=== PATIENT | male | born 1970 | race Caucasian/White ===

== ENCOUNTER 2016-06-29 14:21 | Inpatient (IN) | payer BC, MEDICARE ==
--- NOTE | ~2016-06-29 | CN ---
Consultation Report [facility] [address] [place]. [address] NAME: NOLVIA PRICE : 68 STATUS : ADM IN PAT#: [id number] AGE: 45 ADM/REG DATE : 06/29/16 MR#: [id number] REPORT SERV DATE: 07/01/16 DICTATED BY: LULU QUINONES DATE: 06/30/16 REPORT STATUS : Draft TRANSCRIBED BY: MODL DATE: 06/30/16 CONSULTATION REPORT DATE OF CONSULTATION: 06/30/2016 REASON FOR CONSULTATION: Consulted for diabetes management. REQUESTING PHYSICIAN: Dr. Martinez. IDENTIFYING DATA: 1. PCP is Gregory Nunez III. 2. Shopper is Kali Shaver. 3. Combination Man in the past is Angel Lamar. 4. Applications Support Lead outpatient, the patient sees Dr. Bridges, seen by [facility]. 5. Compensation Expert, Rey Morales. 6. Front End Web Developer, Jeannie Block. HISTORY OF PRESENT ILLNESS: This is a pleasant 45-year-old male with a longstanding history of type 1 diabetes and end-stage renal disease, who dialyzes at the [facility] at [facility], dialysis days Wednesday, Wednesday, and Wednesday through a left forearm AV fistula. He is being admitted by Dr. Rey Morales for abdominal pain, nausea, vomiting, and chills. On 06/29/2016, where CT of the abdomen showed no active process, chest x-ray was unremarkable with no acute changes. The patient is presently receiving antibiotics pulse dosed by pharmacy with an ID consult relating to a right foot ulcer for which he was MRSA positive and blood cultures and on vancomycin. We have been consulted to help manage his blood sugars. Today, his blood sugars using his insulin pump range from 87-111 for which he did dip down in the 60s and 70s briefly today too. Presently, his blood sugar is 111 and he has his insulin pump in use. The patient's history was obtained through careful interview with the patient, coupled with review of [employer] and [employer], category consultant notes and old medical records. PAST MEDICAL HISTORY: 1. Type 1 diabetes on insulin pump. 2. End-stage renal disease on dialysis where he attends the [facility] and [facility] Wednesday, Wednesday, and Wednesday. 3. Recurrent nausea and vomiting. 4. Gastroparesis. 5. Hypertension. 6. Previous DVT. 7. Obstructive sleep apnea on home CPAP. 8. Right Charcot ankle. 9. Gastroparesis. Consultation Report [facility] [id number] [place]. [address] NAME: NOLVIA PRICE : 68 STATUS : ADM IN PAT#: [id number] AGE: 45 ADM/REG DATE : 06/29/16 MR#: [id number] REPORT SERV DATE: 07/01/16 DICTATED BY: LULU QUINONES DATE: 06/30/16 REPORT STATUS : Draft TRANSCRIBED BY: SAUL DATE: 06/30/16 10.Hyperlipidemia. 11.CVA in 2011 for which he can lose balance at time. 12.Gastritis. 13.Colon polyps. 14.Sinusitis. 15.Asthma. 16.Diabetic peripheral neuropathy of the hands and feet. 17.GERD. 18.Lymphedema of the right lower extremity. HOME MEDICATIONS: 1. Elavil 20 mg p.o. at bedtime. 2. Norvasc 5 mg p.o. twice a day p.r.n. systolic blood pressure greater than 170. 3. Aspirin 325 mg p.o. at bedtime. 4. PhosLo 1334 mg p.o. with meals. 5. Coreg 25 mg p.o. at bedtime. 6. Vitamin D 2000 units p.o. every morning. 7. Catapres TTS patch 0.2 mg topical every seven days weekly on Wednesday. 8. Cardizem XT 120 mg p.o. at bedtime. 9. Cymbalta 60 mg p.o. every evening. 10.Hydralazine 100 mg p.o. three times daily. 11.NovoLog for subcu continuous infusion for insulin pump. 12.Cozaar 100 mg p.o. every morning. 13.Melatonin 10 mg p.o. at bedtime for sleep. 14.Zofran 4 mg p.o. every four hours p.r.n. 15.Lyrica 25 mg p.o. at bedtime. 16.Erythromycin 500 mg p.o. four times a day scheduled for gastroparesis. 17.Vicoprofen 7.5/200 mg two tablets p.o. three times a day p.r.n. pain. ALLERGIES: 1. TYLENOL. 2. PNEUMONIA VACCINE. 3. PHENERGAN. 4. REGLAN. SOCIAL HISTORY: The patient is 23 years. Lives in a single-level home. Uses a walker occasionally, disabled. No alcohol, tobacco, or illicit drug use. Has two sons. FAMILY HISTORY: 1. Father is . He had diabetes. 2. Mother has a history of hypertension. 3. One sister who is alive and healthy. PAST SURGICAL HISTORY: 1. Sinus surgery. Consultation Report [place] [id number] [facility] [place]. [address] NAME: NOLVIA PRICE : 68 STATUS : ADM IN [facility]#: [id number] AGE: 45 ADM/REG DATE : 06/29/16 MR#: [id number] REPORT SERV DATE: 07/01/16 DICTATED BY: LULU QIUNONES DATE: 06/30/16 REPORT STATUS : Draft TRANSCRIBED BY: SAUL DATE: 06/30/16 2. Right foot tendon release in 2014. 3. Cholecystectomy. 4. Right knee arthroscopy. 5. AV fistula left arm in 02/2015. 6. Ulcerative fissurectomy in 1998. 7. Bilateral varicose vein stripping in 2010. REVIEW OF SYSTEMS: Negative other than what is included in HPI. Presently, the patient complains of no shortness of breath. No diarrhea. No chest pain. No abdominal pain at present. No nausea and vomiting as upon admission. No fever. Displays no agitation. PHYSICAL EXAMINATION: VITAL SIGNS: Vital signs from today; blood pressure 156/75, O2 saturation 95%, respiratory rate 16, heart rate 66, temperature 98.2. GENERAL: This is a very pleasant 45-year-old male, resting in bed in no acute distress. HEAD: Atraumatic, normocephalic. NEUROLOGIC: He is alert and oriented x3. His cranial nerves II through XII are grossly intact. His mood is pleasant and appropriate. He is very talkative. NECK: Supple. Trachea is midline. No JVD. No obvious thyromegaly or lymphadenopathy. EENT: His sclerae are nonicteric. His pupils are equal, reactive to light. His nares are patent. Mucous membranes moist. Tongue is midline without deviation and his soft palate rises equally on phonation. CHEST: No pain with palpation. LUNGS: Clear to auscultation bilaterally. He has normal respiratory effort. No increased work of breathing with conversation. CARDIOVASCULAR: S1, S2. No murmurs, rubs, or gallops. He is on telemetry and displays a sinus rhythm with a rate at 64. ABDOMEN: Soft, nontender, has active bowel sounds. No palpable organomegaly. Last bowel movement noted was 06/29/2016. EXTREMITIES: No calf tenderness. No edema. He has a right foot dressing that is clean, dry, and intact. Pulses present. SKIN: Warm and dry. No unusual rashes, lesions. Normal color and turgor. PSYCHIATRIC: The patient is pleasant and cooperative. Appropriate mood and affect. LABORATORY DATA: Sodium 136, potassium 4.7, chloride 99, BUN 45, creatinine 6.51, GFR 11, glucose 79, calcium 8.1, phosphorus 5.7. White blood cell 8.2, hemoglobin 8.5, hematocrit 25.2, platelets 136. Blood sugars from today range 87, 79, 71, 72, 69, 115, presently 111. Chest x-ray on 06/29/2016, stable mild venous congestion, bibasilar atelectasis, trace bilateral pleural fluid, stable enlargement of the cardiac silhouette. DIAGNOSTIC STUDIES: CT of the abdomen showed liver and spleen of prominent size, no focal lesions, small amount of ascites, small right pleural effusion with right basilar atelectasis, no bowel obstruction. Right foot wound worried for osteomyelitis. On Consultation Report [address] [address] NAME: NOLVIA PRICE : 68 STATUS : ADM IN [facility]#: [id number] AGE: 45 ADM/REG DATE : 06/29/16 MR#: [id number] REPORT SERV DATE: 07/01/16 DICTATED BY: LULU QUINONES DATE: 06/30/16 REPORT STATUS : Draft TRANSCRIBED BY: SAUL DATE: 06/30/16 06/30/2016, CT of the right lower extremity without contrast showed advanced destructive changes of the midfoot, anterior half of the calcaneus and talus, underlying Charcot changes and osteo not excluded. ASSESSMENT AND PLAN: 1. Diabetes type 1. Aware. This patient is on his own insulin pump continuously. He states his blood sugars usually average 110-120. At home, he checks his blood sugars b.i.d. He does have a consult for client service executive who has written his insulin pump settings on the chart. It seems that he has had episodes of hypoglycemia in the 60s today. We will need to check his blood sugars every four hours and if his blood sugar drops, we will stop his pump for one hour and treat him with hypoglycemic protocol. We will check a hemoglobin A1c in the morning. He states he did eat dinner and we will be offering him an HS snack before bedtime. 2. Diabetic gastroparesis. The patient was admitted with nausea, vomiting, and has a history of gastroesophageal reflux disease. He is followed by GI presently, Dr. Harley. We will continue the erythromycin, the BuSpar, and the Protonix per his recommendations. He has p.r.n. Zofran as needed for nausea. 3. Hypertension. Aware. The patient does have a history of a cerebrovascular accident where he states the only deficit he has at times as he can lose his balance. We will continue his home meds of aspirin, Cardizem, Coreg, Cozaar, and Apresoline. 4. Peripheral neuropathy. Aware. He is having his home medication of Lyrica continued. 5. Obstructive sleep apnea. Aware. He uses home CPAP. We will continue CPAP per home settings at bedtime and he will be on telemetry and he has continuous O2 sat monitoring. 6. Positive blood cultures for methicillin-resistant Staphylococcus aureus. Aware. The patient is on vancomycin pulse dosed per pharmacy due to end-stage renal disease. He has an ID consult and wound care is evaluating the patient's right foot ulcer. 7. End-stage renal disease. Aware. The patient is on dialysis Wednesday, Wednesday, and Wednesday. Management will be per Nephrology. The hospitalist group would like to thank you for this consultation and please let us know if we can be of any further assistance. A.m. team to evaluate continuum of care. LUIS F Lulu Quinones NP / [phone] CC: Bg Dorsey III
--- NOTE | ~2016-06-29 | DS ---
Discharge Summary [facility] [address] [place]. [address] NAME: NOLVIA PRICE : 66 STATUS : DIS IN PAT#: [id number] AGE: 45 ADM/REG DATE : 06/29/16 MR#: [id number] REPORT SERV DATE: 07/13/16 DICTATED BY: MG BOWERS DATE: 07/13/16 REPORT STATUS : Draft TRANSCRIBED BY: SAUL DATE: 07/13/16 Data Collection from hospitalization DISCHARGE DIAGNOSES: 1. Methicillin-resistant Staphylococcus aureus sepsis. 2. Nausea and vomiting. 3. End-stage renal disease. 4. Charcot foot. 5. Diabetes mellitus. 6. Diabetic gastroparesis. 7. Hypertension. 8. Anemia. 9. Obstructive sleep apnea, on CPAP. 10.History of stroke. 11.Hyperlipidemia. CONSULTATIONS: 1. WILLIAM Frederick. 2. Lulu Apodaca NP. 3. Donald Chirinos M.D. 4. David Ignacio M.D., Ph.D, F.A.C.C. PROCEDURES PERFORMED: 1. CT scan of the abdomen and pelvis without contrast on 06/29/2016. 2. CT scan of the right foot without contrast on 06/30/2016. MEDICATIONS: Elavil 20 mg at bedtime, Norvasc 5 mg twice a day as needed, Dorcas Aspirin 325 mg at bedtime, BuSpar 5 mg three tablets a day, PhosLo 1334 mg with meals, Coreg 25 mg at bedtime, vitamin D 2000 units every morning, Catapres TTS 0.2 mg topically every seven days as instructed, Cartia XT 120 mg at bedtime, Cymbalta 60 mg every evening, hydralazine 100 mg three times a day, NovoLog subcutaneously as instructed, Cozaar 100 mg every morning, melatonin 10 mg at bedtime, Zofran 4 mg every four hours as needed, Lyrica 25 mg at bedtime, erythromycin 500 mg four times a day, and Vicoprofen two tablets three times a day as needed. CONDITION AT DISCHARGE: Stable. DISPOSITION: The patient was discharged home on a renal-diabetic diet with activities as instructed. He would follow up at [facility] for hemodialysis Wednesday following discharge with vancomycin level. He would follow up for an outpatient transesophageal echocardiogram on 07/06/2016. HOSPITAL COURSE: This is a 45-year-old man who has end-stage renal disease from longstanding type 1 diabetes. He dialyzes on Mondays, Wednesdays, and Fridays through a left forearm AV fistula. He was here the week prior to this admission with presyncope and a potassium level of 6.3 and bradycardia, on multiple medications including diltiazem, Coreg, and clonidine. This was thought to be multifactorial and could have be related to possible root canal surgery on 06/23/2016. He was here on 06/12/2016 with ongoing nausea, vomiting, and a Discharge Summary [address] [place]. [address] NAME: NOLVIA PRICE : 68 STATUS : DIS IN PAT#: [id number] AGE: 45 ADM/REG DATE : 06/29/16 MR#: [id number] REPORT SERV DATE: 07/13/16 DICTATED BY: MG BOWERS DATE: 07/13/16 REPORT STATUS : Draft TRANSCRIBED BY: SAUL DATE: 07/13/16 potassium of 6.4. On the day of this admission, he came to the emergency room with nausea and vomiting for 48 hours. He did not go to his regularly scheduled dialysis on the day of this admission. In the emergency room, his white count was 15,000 with [address] scan of the abdomen showed no active process and chest x-ray showed no acute changes. Procalcitonin was 12.1 and potassium was 5.7. He said that no one else was sick at home. He had no appetite and he denied diarrhea. He was admitted to the hospital for further evaluation and treatment. Upon admission, liver function tests were normal. Creatinine level was 9. No ultrafiltration would be performed at this time as he appeared to be at or below dry weight with recent GI symptoms. The possible source of his leukocytosis could be the right Charcot ankle? CT scan of the abdomen and chest x-ray showed no active process. Followup blood cultures were going to be obtained. He was going to be continued on vancomycin and Zosyn. Proton pump inhibitor was going to be provided. Wound Care was going to evaluate his right ankle. The following day, he was seen by angélica Vaca for evaluation and management of diabetic gastroparesis and nausea with vomiting. His last EGD by Dr. Bridges was in 2013 and it showed some LA grade A reflux esophagitis, gastritis, and a medium amount of food residue in the stomach with normal duodenum. His last colonoscopy was in August of 2015 with findings of colon polyps. He had been on erythromycin for one or two years by his report. He had been on Reglan before, which he said caused him to have the shakes. He denied any hematemesis. He said that he does have abdominal soreness secondary to nausea and vomiting, but at the present time, he had no more nausea or vomiting. His abdominal pain has now subsided and he said he had only abdominal soreness. He does have a right foot wound. He has Charcot ankle. He has had positive blood cultures 2/ that were positive for gram-positive cocci and clusters to be identified. He had a fever of 103.1 overnight. White count on admission was 15, it was now 8.2. We were going to use antiemetics as well as add BuSpar for his diabetic gastroparesis. Erythromycin was continued. Proton pump inhibitor was increased to twice a day. BuSpar was added. He was also seen by Lulu Apodaca regarding diabetes mellitus management. The patient is a type 1 diabetic. He is on his own insulin pump continuously. He checks his blood sugars at home twice a day. He had episodes of hypoglycemia into the 60s earlier in the day. We would check his blood sugars every four hours. If his blood sugar drop, we would stop his pump for one hour and treat him with hypoglycemic protocol. Hemoglobin A1c was going to be checked. He had Zofran to use as needed for nausea. Aspirin, Cardizem, Coreg, Cozaar, and Apresoline were continued. His home Lyrica was continued for peripheral neuropathy. He does use his home CPAP for obstructive sleep apnea. He would be on telemetry and he had continuous O2 saturation monitoring. He underwent diabetes education. CT scan of the right foot without contrast was also performed. On 07/01/2016, blood cultures revealed Staph aureus. He was tolerating his diet. He had no nausea or vomiting at that time. He was going to remain on his erythromycin and BuSpar as well as Protonix. He was eating well. He had no nausea or vomiting. He was seen by Dr. Donald Chirinos for evaluation and treatment of bacteremia. His impression included methicillin-resistant Staph aureus sepsis, source was possibly the foot originally, but we would need to evaluate for endocarditis. Procalcitonin level was 12.12. Echocardiogram was performed. The following day, he continued to undergo diabetes education. He was seen by Dr. Kolton Rangel. The patient has a long history of type 1 diabetes mellitus with sequelae. He does have compliant issues. He now has MRSA bacteremia with cultures positive x2. The patient does have Charcot right foot-ankle. He is an Discharge Summary [address] [address] NAME: NOLVIA PRICE : 66 STATUS : DIS IN PAT#: [id number] AGE: 45 ADM/REG DATE : 06/29/16 MR#: [id number] REPORT SERV DATE: 07/13/16 DICTATED BY: MG BOWERS DATE: 07/13/16 REPORT STATUS : Draft TRANSCRIBED BY: SAUL DATE: 07/13/16 ambulatory boot. He does have some superficial ulcers and dislocation (inversed) lateral malleolus. He was referred for consideration of reconstruction/arthrodesis of this ankle. There was no cellulitis. The overlying bursa was typical of Charcot weightbearing site. MRI had revealed no signs of osteomyelitis. He suggested monitoring for any changes and he would be available as needed if further intervention was necessary. Discharge planning was performed. He had no new symptoms. On 07/03/2016, vancomycin was continued. He had some left shoulder pain that had resolved. He had no nausea or vomiting. Hemodialysis therapy was performed. He was seen by Dr. David Ignacio regarding bacteremia and evaluation for transesophageal echocardiogram. He had no murmurs or embolic phenomenon. His transthoracic echocardiogram was of reasonable quality with no other findings to suggest endocarditis, but small vegetations could not be excluded. He felt it was reasonable to consider transesophageal echocardiogram and the consequences of Staph endocarditis from a scheduling standpoint, and because he ate breakfast that morning, the current plan was to let him go home and then return the following Wednesday for transesophageal echocardiogram. The main purpose of this would be to determine the duration of antibiotic therapy by Dr. Chirinos. We would continue his other medications per his primary care, which was the [facility]. Discharge instructions were given. Due to his improved and stable condition, he was discharged home with the above-stated instructions. Information collected by: Faye Verde I submit the above information as my discharge summary. ROSA/SAUL Mg Bowers M.D. / [id number] CC: Bg Dorsey [facility] David Ignacio M.D., Ph.D, F.A.C.C. C. Danisha Bo.PBg Foreman, WILLIAM
--- NOTE | ~2016-06-29 | CN ---
Consultation Report [facility] [address] [place]. [address] NAME: NOLVIA PRICE : 66 STATUS : ADM IN PAT#: [id number] AGE: 45 ADM/REG DATE : 06/29/16 MR#: [id number] REPORT SERV DATE: 06/30/16 DICTATED BY: BECCA ORELLANA DATE: 06/30/16 REPORT STATUS : Draft TRANSCRIBED BY: MODL DATE: 06/30/16 GI CONSULTATION DATE OF CONSULTATION: 06/30/2016 REASON FOR CONSULTATION: Evaluation and management of diabetic gastroparesis, nausea with vomiting. HISTORY OF PRESENT ILLNESS: Mr. Price is a pleasant 45-year-old male patient, known to Dr. Bridges in the outpatient setting, who presented to [facility] on 06/29 with a chief complaint of nausea, vomiting, and chills. He has a pertinent past medical history of type 1 diabetes, end-stage renal disease with hemodialysis dependence, diabetic gastroparesis, on a regimen of erythromycin as he has had some side effects from Reglan. He was here as an inpatient in 05/2016 secondary to nausea and vomiting, felt secondary to his gastroparesis. He has had recent root canal surgery on 06/23. He came to the emergency room today secondary to uncontrolled nausea with vomiting that has been ongoing since 06/27/2016. He had dialysis on Wednesday and thus was sent over for emergency room evaluation. CT scan without contrast only showed a small amount of ascites, the liver and spleen were prominent in size without focal lesions, and he had some retained stool in his colon. His last EGD by Dr. Bridges was done in 2013, showing LA grade A reflux esophagitis, gastritis, and a medium amount of food residue in the stomach with normal duodenum. Last colonoscopy was in 08/2015 with findings of colon polyps. He has been on erythromycin for around one to two years per his report. He has been on Reglan before, which he states caused him to have the shakes. He denies any hematemesis. He states he has abdominal soreness secondary to nausea and vomiting, but at present, he has had no more nausea and vomiting. His abdominal pain that he came in with has subsided now and only states soreness. He has not had a bowel movement since yesterday, which he states was small. He states he has chronic constipation, which he does not use anything for, which usually takes care of itself. He has a right foot wound. He has Charcot ankle. He has had positive blood cultures, 2/2 were positive for gram-positive cocci in clusters to be identified. He had a temperature of a 103.1 degrees overnight. His white blood cell count on admission was 15, presently it is 8.2. I have discussed with the patient as well as the patient's mother, who is present at the bedside, we will keep him on his erythromycin, use antiemetics, as well as add BuSpar for his diabetic gastroparesis. If his symptoms recur, then we will discuss plus or minus endoscopic evaluation of his GI tract as it has been at least three years. PAST MEDICAL HISTORY: Positive for end-stage renal disease, hemodialysis dependent; type 1 diabetes with insulin pump; diabetic gastroparesis; recurrent nausea and vomiting; hypertension; right Charcot ankle; anemia; obstructive sleep apnea, on CPAP; history of CVA; hyperlipidemia; gastritis; colon polyps. SOCIAL HISTORY: He is . He denies alcohol, tobacco, or illicits. Consultation Report [place] [id number] [facility] [place]. [address] NAME: NOLVIA PRICE : 66 STATUS : ADM IN [facility]#: [id number] AGE: 45 ADM/REG DATE : 06/29/16 MR#: [id number] REPORT SERV DATE: 06/30/16 DICTATED BY: BECCA ORELLANA DATE: 06/30/16 REPORT STATUS : Draft TRANSCRIBED BY: SAUL DATE: 06/30/16 FAMILY HISTORY: Noncontributory from a GI standpoint. ALLERGIES: LISTED TO TYLENOL, PHENERGAN, DEMEROL, PNEUMONIA VACCINE, AND REGLAN. HOME MEDICATIONS: Elavil, Norvasc, aspirin, PhosLo, Coreg, vitamin D, Catapres, Taztia, Cymbalta, hydralazine, NovoLog, Cozaar, melatonin, Zofran, Lyrica, erythromycin, and Vicoprofen. REVIEW OF SYSTEMS: A 10-point review of systems has been obtained with pertinent positives being addressed in the history of present illness. PERTINENT LABORATORY DATA: Sodium 136, potassium 4.7, BUN is 45, creatinine is 6.51. White count is 8.2, hemoglobin 8.5, hematocrit 25.2. Procalcitonin is 12.12. Total bilirubin is 1.1. Lipase 67. Lactate 0.9. Alkaline phosphatase 148, ALT 20, AST is 21. PHYSICAL EXAMINATION: VITAL SIGNS: Temperature 98.6, pulse 61, respirations 17, and blood pressure 115/61. NEURO: Reveals an alert, awake male, resting in bed. GENERAL: He is cooperative. He is in some distress secondary to right foot discomfort. HEAD, EARS, EYES, NOSE, AND THROAT: Anicteric. Pupils equal, round, reactive to light and accommodation. Normocephalic and atraumatic. NECK: No JVD. No palpable nodes. CARDIOVASCULAR SYSTEM: Regular rate and rhythm. S1 and S2. No murmurs, rubs, or gallops auscultated. LUNGS: Diminished throughout with normal respiratory effort exhibited. ABDOMEN: Soft and obese. He states it is sore to palpation, but no rebound, guarding, or tenderness on exam. He states the soreness is from nausea and vomiting. Unable to assess organomegaly secondary to body habitus. EXTREMITIES: He has right foot lower extremity ankle dressing. SKIN: Warm, dry, and intact. ASSESSMENT: 1. Nausea, vomiting, gastroparesis, improved at present. 2. Positive blood cultures with gram-positive cocci to be identified. 3. Type 1 diabetes. 4. End-stage renal disease with dialysis dependence. 5. Leukocytosis/possible sepsis, which is presently normalized on antibiotics. 6. Right Charcot ankle, question wound infection, rule out osteomyelitis. 7. Fever up to 103.1 degrees overnight. PLAN: 1. Continue erythromycin. 2. Increase his proton pump inhibitor to twice a day. 3. We will add BuSpar 5 mg three times a day before meals for his gastroparesis. Consultation Report [address] [place]. [address] NAME: NOLVIA PRICE : 66 STATUS : ADM IN [facility]#: [id number] AGE: 45 ADM/REG DATE : 06/29/16 MR#: [id number] REPORT SERV DATE: 06/30/16 DICTATED BY: BECCA ORELLANA DATE: 06/30/16 REPORT STATUS : Draft TRANSCRIBED BY: SAUL DATE: 06/30/16 4. At present, nausea and vomiting has improved. We will add the BuSpar if recurrent and plus or minus EGD. We will follow. STEPHAN/SAUL WILLIAM Frederick / [id number] CC: Bg Dorsey III, Ralph D
--- NOTE | ~2016-06-29 | CN ---
Consultation Report [facility] [address] [place]. [address] NAME: NOLVIA PRICE : 66 STATUS : ADM IN [facility]#: [id number] AGE: 45 ADM/REG DATE : 06/29/16 MR#: [id number] REPORT SERV DATE: 07/01/16 DICTATED BY: JESSICA TIJERINA DATE: 07/01/16 REPORT STATUS : Draft TRANSCRIBED BY: MODL DATE: 07/01/16 INFECTIOUS DISEASE CONSULT DATE OF CONSULTATION: REASON FOR REFERRAL: Evaluation and treatment of bacteremia. HISTORY OF PRESENT ILLNESS: The patient is a 45-year-old male. He has a history of diabetes mellitus, hypertension, obstructive sleep apnea, hyperlipidemia, past cerebrovascular accident, end-stage renal disease, for which he is on hemodialysis. He has not been feeling well for several weeks with recurrent episodes of nausea, vomiting, malaise. He came in with a pre-syncopal episode with no definite etiology found other than possible low volume last week. Re-appeared on 06/29/2016 and was admitted with nausea, vomiting, hypotension. Cultures were taken. He was started empirically on vancomycin and Zosyn, and his blood cultures have now returned positive, two of two for methicillin-resistant Staph aureus. Vancomycin is continued. Zosyn has been stopped. The patient has an AV fistula in his left forearm for hemodialysis access and that has been working well without any signs of warmth or redness. He does have a severe Charcot malformation of his left foot and a chronic wound x2, they are on the bottom of the foot and also over the lateral malleolus that he has been followed by Podiatry for a year for and was just debrided about three weeks ago. A CT scan was done of that today and it shows severe malformations, all consistent with a Charcot lesion, mostly unchanged since an MRI done in February, and there is no distinct abscess or certain osteomyelitis. There were no other wounds or soft tissue lesions. No other recent medical procedures. PAST MEDICAL HISTORY: Otherwise, unremarkable. MEDICATIONS: He is now on vancomycin alone. ALLERGIES: HE HAS NO KNOWN ANTIMICROBIAL ALLERGIES. SOCIAL HISTORY: He is . Nonsmoker. No history of alcohol or substance abuse. He is disabled. FAMILY HISTORY: Noncontributory. PHYSICAL EXAMINATION: GENERAL: A nontoxic, adult, male, in no acute distress. Alert and oriented x3. VITAL SIGNS: I am unable to give vital signs for this patient for no access to the computer. HEENT: Sclerae are clear. There are no oropharyngeal lesions. NECK: Supple without lymphadenopathy. LUNGS: Clear. HEART: Regular rate and rhythm. Consultation Report [address] [place]. [address] NAME: NOLVIA PRICE : 66 STATUS : ADM IN [facility]#: [id number] AGE: 45 ADM/REG DATE : 06/29/16 MR#: [id number] REPORT SERV DATE: 07/01/16 DICTATED BY: JESSICA TIJERINA DATE: 07/01/16 REPORT STATUS : Draft TRANSCRIBED BY: SAUL DATE: 07/01/16 ABDOMEN: Soft, nontender. Positive bowel sounds. EXTREMITIES: Previously described Charcot malformation. There is warmth and redness, but no purulent drainage. No foul odor associated with it. No other skin or soft tissue lesions. His AV malformation for hemodialysis access shows no signs of infection. The blood cultures as previously mentioned, positive two of two for gram-positive cocci that have been identified by Octapoly as methicillin-resistant Staph aureus. LABORATORY DATA: His white blood cell count 15 when he came in, 8.2 yesterday, today's is pending. Hematocrit yesterday 25.2, platelets 136, normal differential on the white blood cell count. BUN and creatinine 45 and 6.51. Procalcitonin 12.12. IMPRESSION: Methicillin-resistant Staph aureus sepsis, source is possibly the foot originally, but also need to evaluate for endocarditis. RECOMMENDATIONS: 1. Treat with vancomycin. 2. Ask Dr. Shaver of Podiatry to re-evaluate the foot to make sure we do not need surgical debridement. 3. Echocardiogram. 4. Finally, I will follow the patient with you. I appreciate very much your consulting on this patient. FRANCESCO Jessica Tijerina M.D. / [id number] CC: Bg Dorseyon, D.P.M.
--- NOTE | ~2016-06-29 | HP ---
History And Physical [place] [id number] [place]. [address] NAME: NOLVIA PRICE : 66 STATUS : ADM IN [facility]#: [id number] AGE: 45 ADM/REG DATE : 06/29/16 MR#: [id number] REPORT SERV DATE: 06/29/16 DICTATED BY: MG BOWERS DATE: 06/29/16 REPORT STATUS : Draft TRANSCRIBED BY: SAUL DATE: 06/29/16 DATE OF ADMISSION: 06/29/2016 CHIEF COMPLAINT: Nausea, vomiting, chills. HISTORY OF PRESENT ILLNESS: Mr. Price is a 45-year-old white male with ESRD from long- standing type 1 diabetes who dialyzes at the [facility] Wednesday, Wednesday, Wednesday through a left forearm AV fistula. He was here last week with presyncope, potassium 6.3, and bradycardia on multiple medications including diltiazem, Coreg, and clonidine. This was thought to be multifactorial and could have been related to possible root canal surgery on 06/23/2016. He was here on 06/12/2016 with ongoing nausea, vomiting, potassium 6.4. Today, he came into the emergency room with nausea and vomiting since Wednesday x48 hours that is unabated. He did not go to his regularly scheduled dialysis today. In the emergency room, [place] count [place] [address] with 88% segmented neutrophils. CT of the abdomen showed no active process and chest x-ray showed no acute changes. Procalcitonin was 12.1, potassium 5.7. He has no appetite and denies diarrhea. There is no one else sick at home. PAST MEDICAL HISTORY: 1. End-stage renal disease, [facility] Wednesday, Wednesday, and Wednesday a left forearm AVF. 2. Type 1 diabetes mellitus with gastroparesis on insulin pump. 3. Hypertension. 4. Right Charcot ankle. 5. Anemia. 6. History of nephrotic range proteinuria. 7. Obstructive sleep apnea on CPAP. 8. History of stroke. 9. Hyperlipidemia. MEDICATIONS: At home; Elavil 20 mg at bedtime, amlodipine 5 mg b.i.d., aspirin, PhosLo 2 with meals, Coreg 25 mg at bedtime, vitamin D 2000 units daily, Catapres TTS #2, diltiazem 120 mg daily, Cymbalta 60 mg daily, hydralazine 100 mg t.i.d., insulin pump, losartan 100 mg daily, melatonin at bedtime, Lyrica 25 mg at bedtime, erythromycin 500 mg 4 times per day, Vicoprofen p.r.n. FAMILY HISTORY: No ESRD. SOCIAL HISTORY: . Nonsmoker. Has very supportive family. REVIEW OF SYSTEMS: See HPI for pertinent details. PHYSICAL EXAMINATION: VITAL SIGNS: Temperature 98.7, pulse 80, respirations 18, blood pressure 196/94. History And Physical [address] [address] NAME: NOLVIA PRICE : 66 STATUS : ADM IN [facility]#: [id number] AGE: 45 ADM/REG DATE : 06/29/16 MR#: [id number] REPORT SERV DATE: 06/29/16 DICTATED BY: MG BOWERS DATE: 06/29/16 REPORT STATUS : Draft TRANSCRIBED BY: SAUL DATE: 06/29/16 GENERAL: He is not weighed as he is in his ER stretcher. He is seen on dialysis. Does not appear to feel well today. He is in no active distress. HEENT: Sclerae without icterus. Conjunctivae not injected. Oropharynx is clear. Mucous membranes are dry. NECK: No JVD. LUNGS: He has bilateral rhonchi without dyspnea or tachypnea on O2 per nasal cannula. HEART: Regular rate and rhythm. Audible S4. ABDOMEN: Soft, obese, nontender, nondistended. Bowel sounds present throughout. No rebound, guarding, or peritoneal signs. His left forearm AV fistula blood flow is 410 mL/minute on dialysis. EXTREMITIES: Without edema. SKIN: Shows no rash. He has a wound to his right lateral malleolus at the site of his Charcot ankle which may be infected. NEURO: Nonfocal. LABORATORY DATA: Sodium 133, potassium 5.7, bicarb 24, BUN 65, creatinine 9. White count 91510 with 88 segmented neutrophils. Calcium 9, albumin 3, lipase 67. LFTs are normal. ASSESSMENT AND PLAN: Mr. Price has End-stage renal disease with type 1 diabetes mellitus presents with nausea, vomiting, fever at home, hypertension, chills, leukocytosis, right Charcot joint, and hyperkalemia. Admit to the Renal Service Dialysis today with two potassium dialysate. No ultrafiltration as he appears to be at or below dry weight with recent GI symptoms. Possible source of his leukocytosis, this is right Charcot ankle? CT of the abdomen and chest x-ray showed no active process. Follow up blood cultures. Continue vancomycin and Zosyn. PPI Zofran and GI consult. Wound care to evaluate his right ankle. NC/MODL Mg Bowers M.D. / [id number] CC: Bg Dorsey III, RALPH D
--- NOTE | ~2016-06-29 | CN ---
Consultation Report [facility] [address] [place]. [address] NAME: NOLVIA PRICE : 66 STATUS : ADM IN [facility]#: [id number] AGE: 45 ADM/REG DATE : 06/29/16 MR#: [id number] REPORT SERV DATE: 07/03/16 DICTATED BY: DAVID JANG DATE: 07/03/16 REPORT STATUS : Draft TRANSCRIBED BY: MODAlf DATE: 07/03/16 CARDIOLOGY CONSULTATION DATE OF CONSULTATION: REASON FOR CONSULTATION: Bacteremia. Evaluation for MARINE. HISTORY OF PRESENT ILLNESS: Mr. Price is a 45-year-old man with end-stage renal disease, on hemodialysis, hypertension, hypercholesterolemia, and Charcot foot. He presented to the hospital with generalized symptoms of nausea, vomiting, and weakness. He was found to be bacteremic with persistent positive blood cultures for MRSA, source is unclear although he has chronic cellulitic foot and he has had no chest pain. He has some chronic mild dyspnea. He has no murmurs or embolic phenomena. REVIEW OF SYSTEMS: The review of systems is as per the history of present illness. Ten other systems are negative. PAST MEDICAL HISTORY: Hypertension, high cholesterol, and end-stage renal disease, on dialysis. FAMILY HISTORY: Noncontributory. SOCIAL HISTORY: The patient is . No tobacco or alcohol. ALLERGIES: ACETAMINOPHEN, MEPERIDINE, AND PROMETHAZINE. HOME MEDICATIONS: Amitriptyline, amlodipine 5 daily; aspirin 325 daily; PhosLo Coreg 25 mg p.o. b.i.d.; vitamin D; clonidine patch 0.2 q. week; Cardizem 120 daily; Cymbalta; hydralazine 100 t.i.d.; insulin; Cozaar 100 daily; melatonin; Zofran; Lyrica; erythromycin; and Vicoprofen. PHYSICAL EXAMINATION: VITAL SIGNS: The patient is afebrile. Heart rate 60, blood pressure 158/82. GENERAL: The patient is a pleasant white male, in no apparent distress. HEENT: Conjunctivae are anicteric, no xanthelasma, lips without cyanosis. NECK: Supple, normal JVP, carotids +2 without bruit. LUNGS: Clear to auscultation bilaterally, no wheezes, rales or rhonchi. CARDIOVASCULAR: Regular rate and rhythm. Normal S1 and S2. No murmur, rub, or gallop. ABDOMEN: Soft, nontender, nondistended, with normal bowel sounds. No hepatomegaly. EXTREMITIES: Chronic changes. The right foot dressing is in place. NEURO/PSYCH: Alert and oriented to person, place and time. No obvious neurologic deficits. Mood and affect normal. Consultation Report [address] [place]. [address] NAME: NOLVIA PRICE : 66 STATUS : ADM IN PAT#: [id number] AGE: 45 ADM/REG DATE : 06/29/16 MR#: [id number] REPORT SERV DATE: 07/03/16 DICTATED BY: DAVID JANG DATE: 07/03/16 REPORT STATUS : Draft TRANSCRIBED BY: SAUL DATE: 07/03/16 IMPRESSION: 1. Recurrent bacteremia of unclear etiology. 2. Charcot foot. 3. Hypertension. 4. Hypercholesterolemia. 5. End-stage renal disease, on hemodialysis. RECOMMENDATIONS: Mr. Price has persistent bacteremia with MRSA, no obvious source. I have reviewed his transthoracic echo which is of reasonable quality with no other findings to suggest endocarditis but small vegetations cannot be excluded. I think it is reasonable to consider a MARINE given the consequences of Staph endocarditis from a scheduling standpoint and because he ate breakfast this morning, current plan is to let him go home today and return on Wednesday for transesophageal echocardiogram. Main purpose of this will be to determine duration of antibiotic therapy per Dr. Chirinos. He will continue on other medicines per his primary care which is the Renal service. WO/SAUL David Jang M.D., Ph.D, F.A.C.C. / [id number] CC: Rey Morales M.D. ERIKA GUY III
[2016-06-29 11:52] LABS: BASOPHILS 0.2 %; BASOPHILS ABSOLUTE 0.03 10/3/uL (0.0-0.16); EOSINOPHILS 0.1 %; EOSINOPHILS ABSOLUTE 0.01 10/3/uL (0.0-0.53); HEMOGLOBIN 10.5 g/dL (13.6-17.8); IMMATURE GRANULOCYTES 0.4 %; IMMATURE GRANULOCYTES ABSOLUTE 0.06 10/3/uL (0.0-0.11); LYMPHOCYTES 5.9 %; LYMPHOCYTES ABSOLUTE 0.88 10/3/uL (0.67-4.30); MEAN CORPUS HGB CONC 34.5 g/dL (32.0-36.0); MEAN CORPUSCULAR HEMOGLOB 34.7 pg (26.0-34.0); MEAN CORPUSCULAR VOLUME 100.3 fL (80-100); MEAN PLATELET VOLUME 10.8 fL (9.2-13.0); MONOCYTES 5.7 %; MONOCYTES ABSOLUTE 0.85 10/3/uL (0.21-1.20); NEUTROPHILS 87.7 %; NEUTROPHILS ABSOLUTE 13.14 10/3/uL (2.02-8.40); PLATELET COUNT 160 10/3/uL (150-400); RBC DISTRIBUTION WIDTH 14.1 % (12.0-16.0); RED CELL COUNT 3.03 10/6/uL (4.7-6.1)
[2016-06-29 11:56] LABS: ER CBC TAT 0 Hrs 09 Mins; HEMATOCRIT 30.4 % (40.0-51.0); MANUAL DIFF NO %
[2016-06-29 12:09] LABS: A/G RATIO 0.6 (0.7-1.9); CHLORIDE, SERUM 96 MMOL/L (96-112); SGOT(AST) 20 U/L (5-40); SGPT(ALT) 21 U/L (5-65); SODIUM, SERUM 133 MMOL/L (135-148); TOTAL BILIRUBIN 1.1 MG/DL (0-1.2)
[2016-06-29 12:13] LABS: ALKALINE PHOSPHATASE 148 U/L (45-117); BUN (BLOOD UREA NITROGEN) 65 MG/DL (6-23); CO2 (CARBON DIOXIDE) 24 MMOL/L (24-34); CREATININE 8.96 MG/DL (0.70-1.30); GFR AFRICAN AMERICAN 7 ML/MIN (>=60); GFR NON AFRICAN AMERICAN 6 ML/MIN (>=60); GLUCOSE, SERUM 72 MG/DL (60-99); POTASSIUM, SERUM 5.7 MMOL/L (3.5-5.3)
[2016-06-29 12:52] LABS: PROCALCITONIN 12.12 ng/mL (<0.5)
[2016-06-29 12:57] LABS: INFLUENZA A SCREEN NEGATIVE (NEGATIVE); INFLUENZA B SCREEN NEGATIVE (NEGATIVE)
[~2016-06-29 14:21] MED LIST: ALEVE220 MG PO; ALPHA LIPOIC ACID PO; ALPHA LIPOIC50 M1 PO; AMIT10 PO; AMIT25 PO; APRES10B PO; APRES50 PO; ASAB PO; ASABAYER PO; ASTELIN NAS; ASTEPRO0.15 % NAS; BACTROCR NAS; CARDCD120 PO; CAT1 PO; CATAPRES2 TOP; COREG12 PO; COREG25 PO; COZ50 PO; COZAAR100 MG PO; CRESTOR20 MG PO; CYMBALTA30 PO; CYMBALTA60 PO; DILT-XR120 MG PO; DURICEF PO; ERY-TAB250 MG PO; ERY-TAB500 MG PO; ERYTHROMYCIN 250 MG PO; FIORINALC PO; FISH OIL PO; FISH-EPA1000 MG PO; GARACR15 TOP; GENTAMICIN OINT TOP; GLUCOPHAGE1000 MG PO; HUMALOG SC; HUMAPUMP SC; HYDRALAZINE100 MG PO; HYDROCODONE PO; IBUPROFEN PO; IMITREX100 MG PO; IMITREX50 PO; L40 PO; LYRICA25 PO; MAXIMUM D3 PO; MCZ25 PO; MELATONIN10 M2 PO; MONODOX100 MG PO; MULTIBETIC PO; MULTIVITAMI1 PO; NEXIUM20 M1 PO; NORV5 PO; NOVLOGPUMP SC; OXYCOD PO; PEP20 PO; PHOSLO PO; PLAVIX PO; PR25 PO; PRAV10 PO; PRAVAC PO; PROAIR HFA INH; PROVENTSOL INH; RED YEAS1 PO; REM15 PO; ROCALTROL 0.0.25 MCG PO; SINGULAIR1 PO; SODBICAR10 PO; TAZTIA X4 PO; VIB100 PO; VICOPROFEN 7.5/1 TAB PO; VITAMIN D1000 UNI1 PO; ZOFRAN ODT4 MG PO; ZOFRAN8 PO; ZYRTEC ALLGY10 MG PO; [UNRECOGNIZED DRUG - OTHER] OR; [UNRECOGNIZED DRUG - OTHER] PO
[2016-06-30 07:09] LABS: BASOPHILS 0.4 %; BASOPHILS ABSOLUTE 0.03 10/3/uL (0.0-0.16); EOSINOPHILS 0.7 %; EOSINOPHILS ABSOLUTE 0.06 10/3/uL (0.0-0.53); HEMOGLOBIN 8.5 g/dL (13.6-17.8); IMMATURE GRANULOCYTES 0.1 %; IMMATURE GRANULOCYTES ABSOLUTE 0.01 10/3/uL (0.0-0.11); LYMPHOCYTES 13.4 %; LYMPHOCYTES ABSOLUTE 1.09 10/3/uL (0.67-4.30); MEAN CORPUS HGB CONC 33.7 g/dL (32.0-36.0); MEAN CORPUSCULAR HEMOGLOB 33.6 pg (26.0-34.0); MEAN CORPUSCULAR VOLUME 99.6 fL (80-100); MEAN PLATELET VOLUME 10.9 fL (9.2-13.0); MONOCYTES 8.5 %; MONOCYTES ABSOLUTE 0.69 10/3/uL (0.21-1.20); NEUTROPHILS 76.9 %; NEUTROPHILS ABSOLUTE 6.27 10/3/uL (2.02-8.40); PLATELET COUNT 136 10/3/uL (150-400); RBC DISTRIBUTION WIDTH 14.2 % (12.0-16.0); RED CELL COUNT 2.53 10/6/uL (4.7-6.1)
[2016-06-30 07:10] LABS: HEMATOCRIT 25.2 % (40.0-51.0); MANUAL DIFF NO %; WHITE BLOOD CELLS 8.2 10/3/uL (4.5-10.5)
[2016-06-30 07:20] LABS: ALBUMIN 2.4 G/DL (3.5-5.0); CALCIUM, SERUM 8.1 MG/DL (8.5-10.4); CHLORIDE, SERUM 99 MMOL/L (96-112); CO2 (CARBON DIOXIDE) 27 MMOL/L (24-34); GFR AFRICAN AMERICAN 11 ML/MIN (>=60); GFR NON AFRICAN AMERICAN 9 ML/MIN (>=60); GLUCOSE, SERUM 79 MG/DL (60-99); PHOSPHORUS, SERUM 5.7 MG/DL (2.5-4.5); POTASSIUM, SERUM 4.7 MMOL/L (3.5-5.3); SODIUM, SERUM 136 MMOL/L (135-148)
[2016-06-30 07:21] LABS: BUN (BLOOD UREA NITROGEN) 45 MG/DL (6-23); CREATININE 6.51 MG/DL (0.70-1.30)
[2016-07-01 14:22] LABS: BASOPHILS 0.3 %; BASOPHILS ABSOLUTE 0.02 10/3/uL (0.0-0.16); EOSINOPHILS 4.7 %; EOSINOPHILS ABSOLUTE 0.32 10/3/uL (0.0-0.53); HEMATOCRIT 26.3 % (40.0-51.0); HEMOGLOBIN 9.2 g/dL (13.6-17.8); IMMATURE GRANULOCYTES 0.4 %; IMMATURE GRANULOCYTES ABSOLUTE 0.03 10/3/uL (0.0-0.11); LYMPHOCYTES 8.6 %; LYMPHOCYTES ABSOLUTE 0.59 10/3/uL (0.67-4.30); MANUAL DIFF NO %; MEAN CORPUSCULAR HEMOGLOB 33.9 pg (26.0-34.0); MEAN PLATELET VOLUME 10.4 fL (9.2-13.0); MONOCYTES 15.9 %; MONOCYTES ABSOLUTE 1.09 10/3/uL (0.21-1.20); NEUTROPHILS 70.1 %; NEUTROPHILS ABSOLUTE 4.81 10/3/uL (2.02-8.40); PLATELET COUNT 151 10/3/uL (150-400); RED CELL COUNT 2.71 10/6/uL (4.7-6.1); WHITE BLOOD CELLS 6.9 10/3/uL (4.5-10.5)
[2016-07-01 14:35] LABS: ALBUMIN 2.5 G/DL (3.5-5.0); BUN (BLOOD UREA NITROGEN) 48 MG/DL (6-23); CALCIUM, SERUM 8.1 MG/DL (8.5-10.4); CHLORIDE, SERUM 99 MMOL/L (96-112); CO2 (CARBON DIOXIDE) 27 MMOL/L (24-34); CREATININE 5.42 MG/DL (0.70-1.30); GFR AFRICAN AMERICAN 13 ML/MIN (>=60); GFR NON AFRICAN AMERICAN 12 ML/MIN (>=60); GLUCOSE, SERUM 163 MG/DL (60-99); SODIUM, SERUM 136 MMOL/L (135-148)
[2016-07-01 14:36] LABS: PHOSPHORUS, SERUM 3.3 MG/DL (2.5-4.5)
[2016-07-03 07:18] LABS: HEMATOCRIT 27.3 % (40.0-51.0); HEMOGLOBIN 9.4 g/dL (13.6-17.8); MEAN CORPUS HGB CONC 34.4 g/dL (32.0-36.0); MEAN CORPUSCULAR HEMOGLOB 34.1 pg (26.0-34.0); MEAN CORPUSCULAR VOLUME 98.9 fL (80-100); MEAN PLATELET VOLUME 11.8 fL (9.2-13.0); RBC DISTRIBUTION WIDTH 14.2 % (12.0-16.0); RED CELL COUNT 2.76 10/6/uL (4.7-6.1); WHITE BLOOD CELLS 7.5 10/3/uL (4.5-10.5)
[2016-07-03 07:23] LABS: ALBUMIN 2.4 G/DL (3.5-5.0); CALCIUM, SERUM 8.6 MG/DL (8.5-10.4); CHLORIDE, SERUM 99 MMOL/L (96-112); CO2 (CARBON DIOXIDE) 23 MMOL/L (24-34); GLUCOSE, SERUM 171 MG/DL (60-99); SODIUM, SERUM 134 MMOL/L (135-148)
[2016-07-03 07:24] LABS: CREATININE 8.21 MG/DL (0.70-1.30); GFR AFRICAN AMERICAN 8 ML/MIN (>=60); GFR NON AFRICAN AMERICAN 7 ML/MIN (>=60); PHOSPHORUS, SERUM 4.8 MG/DL (2.5-4.5); POTASSIUM, SERUM 4.9 MMOL/L (3.5-5.3)
[2016-07-03 07:30] LABS: MANUAL DIFF YES %; PLATELET COUNT 205 10/3/uL (150-400)
[2016-07-03 07:34] LABS: BUN (BLOOD UREA NITROGEN) 66 MG/DL (6-23)
[2016-07-03 07:55] LABS: BAND NEUTROPHILS 5 %; BASOPHILS 2 %; BASOPHILS ABSOLUTE (CALC) 0.15 10/3/uL (0.0-0.16); LYMPHOCYTES 12 %; MONOCYTES 14 %; MONOCYTES ABSOLUTE (CALC) 1.05 10/3/uL (0.21-1.20); PLATELET ESTIMATE ADQ (ADEQUATE); RBC MORPHOLOGY NORM (NORMAL); SEGMENTED NEUTROPHIL (0) 67 %; TOTAL NUCLEATED CELLS 100
[2016-07-03 14:29] LABS: BASOPHILS 0.4 %; BASOPHILS ABSOLUTE 0.02 10/3/uL (0.0-0.16); EOSINOPHILS 4.6 %; EOSINOPHILS ABSOLUTE 0.21 10/3/uL (0.0-0.53); HEMATOCRIT 34.6 % (40.0-51.0); HEMOGLOBIN 11.9 g/dL (13.6-17.8); IMMATURE GRANULOCYTES 0.4 %; IMMATURE GRANULOCYTES ABSOLUTE 0.02 10/3/uL (0.0-0.11); LYMPHOCYTES ABSOLUTE 0.69 10/3/uL (0.67-4.30); MEAN CORPUS HGB CONC 34.4 g/dL (32.0-36.0); MEAN CORPUSCULAR HEMOGLOB 33.5 pg (26.0-34.0); MEAN CORPUSCULAR VOLUME 97.5 fL (80-100); MEAN PLATELET VOLUME 11.4 fL (9.2-13.0); MONOCYTES 9.8 %; MONOCYTES ABSOLUTE 0.45 10/3/uL (0.21-1.20); NEUTROPHILS 69.8 %; PLATELET COUNT 144 10/3/uL (150-400); RBC DISTRIBUTION WIDTH 13.8 % (12.0-16.0); RED CELL COUNT 3.55 10/6/uL (4.7-6.1); WHITE BLOOD CELLS 4.6 10/3/uL (4.5-10.5)
[2016-07-03 14:30] LABS: MANUAL DIFF NO %
[2016-07-03 14:39] LABS: ALBUMIN 2.5 G/DL (3.5-5.0); BUN (BLOOD UREA NITROGEN) 68 MG/DL (6-23); CALCIUM, SERUM 8.3 MG/DL (8.5-10.4); CHLORIDE, SERUM 97 MMOL/L (96-112); CO2 (CARBON DIOXIDE) 24 MMOL/L (24-34); CREATININE 8.59 MG/DL (0.70-1.30); GFR AFRICAN AMERICAN 8 ML/MIN (>=60); GFR NON AFRICAN AMERICAN 7 ML/MIN (>=60); PHOSPHORUS, SERUM 4.6 MG/DL (2.5-4.5); POTASSIUM, SERUM 4.7 MMOL/L (3.5-5.3); SODIUM, SERUM 134 MMOL/L (135-148)
[2016-07-03 14:40] LABS: GLUCOSE, SERUM 228 MG/DL (60-99)
[2016-07-03] MEDS ORDERED: BUSPAR5 PO (18:04)
== END 2016-07-03 19:51 | disposition home or self-care (01) | DRG 871 ==
LOC: ER 14:21 → 5SO 16:07
PROVIDERS: Emergency Medicine; Internal Medicine Nephrology; Nurse Practitioner
PROC: 5A1D60Z (ICD-10-PCS; principal; 2016-07-01)
PROC: B246YZZ Ultrasonography of Right and Left Heart using Other Contrast (ICD-10-PCS; 2016-07-01)
DX: A41.02 Sepsis due to Methicillin resistant Staphylococcus aureus (principal); N18.6 End stage renal disease; A52.16 Charcot's arthropathy (tabetic); K31.84 Gastroparesis; I12.0 Hypertensive chronic kidney disease with stage 5 chronic kidney disease or end stage renal disease; E10.43 Type 1 diabetes mellitus with diabetic autonomic (poly)neuropathy; E10.22 Type 1 diabetes mellitus with diabetic chronic kidney disease; E87.5 Hyperkalemia; G47.33 Obstructive sleep apnea (adult) (pediatric); Z99.2 Dependence on renal dialysis; Z79.82 Long term (current) use of aspirin; Z79.4 Long term (current) use of insulin; Z88.8 Allergy status to other drugs, medicaments and biological substances; Z88.6 Allergy status to analgesic agent; Z88.5 Allergy status to narcotic agent; Z79.899 Other long term (current) drug therapy; Z86.73 Personal history of transient ischemic attack (TIA), and cerebral infarction without residual deficits
CPT/HCPCS: 71010; 73700-RT; 74176; 80053; 80069; 80202; 82947; 82962; 83036; 83605; 83690; 83735; 84145; 85025; 87040; 87077; 87150; 87186; 87804; 93005; 96374; 99285; A9270-GY; C8929; C9113; G0257; J0885; J1170; J2405; J2543; J3370; Q9957

== ENCOUNTER 2016-07-27 17:26 | Emergency (ER) | payer BC, MEDICARE ==
[2016-07-27 17:03] LABS: BASOPHILS 0.5 %; BASOPHILS ABSOLUTE 0.05 10/3/uL (0.0-0.16); EOSINOPHILS 4.7 %; EOSINOPHILS ABSOLUTE 0.45 10/3/uL (0.0-0.53); ER CBC TAT 0 Hrs 05 Mins; HEMATOCRIT 29.3 % (40.0-51.0); HEMOGLOBIN 10.3 g/dL (13.6-17.8); IMMATURE GRANULOCYTES 0.4 %; IMMATURE GRANULOCYTES ABSOLUTE 0.04 10/3/uL (0.0-0.11); LYMPHOCYTES 10.4 %; MEAN CORPUS HGB CONC 35.2 g/dL (32.0-36.0); MEAN CORPUSCULAR HEMOGLOB 33.2 pg (26.0-34.0); MEAN CORPUSCULAR VOLUME 94.5 fL (80-100); MEAN PLATELET VOLUME 9.5 fL (9.2-13.0); MONOCYTES ABSOLUTE 0.87 10/3/uL (0.21-1.20); NEUTROPHILS ABSOLUTE 7.24 10/3/uL (2.02-8.40); PLATELET COUNT 214 10/3/uL (150-400); RBC DISTRIBUTION WIDTH 14.4 % (12.0-16.0); WHITE BLOOD CELLS 9.7 10/3/uL (4.5-10.5)
[2016-07-27 17:06] LABS: MANUAL DIFF NO %
[2016-07-27 17:12] LABS: INTERNATIONAL NORMAL RATI 1.2 UNITS (-); PROTIME (NOT ORD) 14.7 SEC (12.0-14.5)
[2016-07-27 17:18] LABS: A/G RATIO 0.6 (0.7-1.9); ALBUMIN 2.8 G/DL (3.5-5.0); ALKALINE PHOSPHATASE 142 U/L (45-117); BUN (BLOOD UREA NITROGEN) 29 MG/DL (6-23); CALCIUM, SERUM 8.2 MG/DL (8.5-10.4); CHLORIDE, SERUM 101 MMOL/L (96-112); CO2 (CARBON DIOXIDE) 27 MMOL/L (24-34); GFR AFRICAN AMERICAN 16 ML/MIN (>=60); GFR NON AFRICAN AMERICAN 13 ML/MIN (>=60); GLOBULIN 4.5 G/DL (2.5-4.1); GLUCOSE, SERUM 121 MG/DL (60-99); POTASSIUM, SERUM 4.1 MMOL/L (3.5-5.3); SGOT(AST) 19 U/L (5-40); SGPT(ALT) 19 U/L (5-65); SODIUM, SERUM 139 MMOL/L (135-148); TOTAL BILIRUBIN 0.7 MG/DL (0-1.2); TOTAL PROTEIN 7.3 G/DL (6.0-8.5); TROPONIN I 0.03 NG/ML (<0.05)
[~2016-07-27 17:26] MED LIST changes: +BUSPAR5 PO
== END 2016-07-27 18:36 | disposition home or self-care (01) ==
LOC: ER 17:26
PROVIDERS: Emergency Medicine
DX: R07.89 Other chest pain (principal); I10 Essential (primary) hypertension; E11.9 Type 2 diabetes mellitus without complications; Z86.73 Personal history of transient ischemic attack (TIA), and cerebral infarction without residual deficits; Z99.2 Dependence on renal dialysis; Z88.8 Allergy status to other drugs, medicaments and biological substances; Z88.5 Allergy status to narcotic agent; Z88.6 Allergy status to analgesic agent; Z88.1 Allergy status to other antibiotic agents; Z79.82 Long term (current) use of aspirin; Z79.4 Long term (current) use of insulin; Z79.899 Other long term (current) drug therapy
CPT/HCPCS: 71010; 80053; 82962; 84484; 85025; 85610; 93005; 96374; 99285; J2405

== ENCOUNTER 2016-08-09 12:02 | Inpatient (IN) | payer BC, MEDICARE ==
--- NOTE | ~2016-08-09 | DS ---
Discharge Summary [facility] [address] [place]. [address] NAME: NOLVIA PRICE : 66 STATUS : DIS IN PAT#: [id number] AGE: 46 ADM/REG DATE : 08/09/16 MR#: [id number] REPORT SERV DATE: 08/27/16 DICTATED BY: MG BOWERS DATE: 08/26/16 REPORT STATUS : Draft TRANSCRIBED BY: SAUL DATE: 08/26/16 Data Collection from hospitalization DISCHARGE DIAGNOSES: 1. Chills - felt to be adverse drug reaction. 2. Possible infection of the right foot. 3. Recent methicillin-resistant Staphylococcus aureus bacteremia. 4. End-stage renal disease. 5. Diabetes mellitus. 6. Charcot foot. 7. Hypertension. 8. Diabetes mellitus gastroparesis. 9. Anemia. 10.History of stroke. 11.History of nephrologic range proteinuria. 12.Hyperlipidemia. CONSULTATIONS: 1. Donald Chirinos M.D. 2. Hermelinda Shaver M.D. PROCEDURES PERFORMED: 1. CT scan of the abdomen and pelvis without contrast on 08/09/2016. 2. MRI of the right lower extremity without contrast on 08/09/2016. 3. Ceretec whole-body scan on 08/13/2016. 4. Biopsy of the right foot on 08/15/2016. PATHOLOGY: Base of fifth metatarsal site unspecified image guided core biopsy - bone, cartilage, and fibrous tissue, no evidence of infection or tumor. Tibiotalar joint site unspecified image guided core biopsy - bone, cartilage, and fibrous tissue, no evidence of infection or tumor. MEDICATIONS: Elavil 20 mg at bedtime, Norvasc 5 mg twice a day as needed, Dorcas aspirin 325 mg at bedtime, urecholine 25 mg three times a day with meals, BuSpar 5 mg with meals, PhosLo three tablets with meals, Coreg 25 mg at bedtime, vitamin D 1000 units daily, Catapres TTS 0.2 mg topically every seven days, Cartia XT 120 mg at bedtime, Cymbalta 60 mg at bedtime, hydralazine 100 mg three times a day, NovoLog injection insulin as instructed, Cozaar 100 mg every morning, melatonin 10 mg at bedtime, Zofran 4 mg every four hours as needed, Lyrica 25 mg at bedtime, erythromycin 500 mg four times a day, Vicoprofen one tablet every four hours as needed, and compounded eye drops one drop four times a day. CONDITION AT DISCHARGE: Stable. DISPOSITION: The patient was discharged home on a renal-diabetic diet with activities as instructed. He would follow up for his regular dialysis as instructed. HOSPITAL COURSE: This is a 45-year-old man who has end-stage renal disease. He dialyzes on Mondays, Wednesdays, and Fridays through a left forearm AV fistula. He had been admitted Discharge [address] [address] NAME: NOLVIA PRICE : 66 STATUS : DIS IN PAT#: [id number] AGE: 46 ADM/REG DATE : 08/09/16 MR#: [id number] REPORT SERV DATE: 08/27/16 DICTATED BY: MG BOWERS DATE: 08/26/16 REPORT STATUS : Draft TRANSCRIBED BY: SAUL DATE: 08/26/16 here on 06/29/2016 with MRSA bacteremia. He has been seen by Infectious Disease, Cardiology, and Podiatry during that admission, as well as GI. Workup during that hospitalization had shown no obvious source other than his right foot wound and Charcot ankle. He was placed on vancomycin and outpatient transesophageal echocardiogram on 07/06/2016 had shown ejection fraction of 55%, RVSP 35 mmHg, and no obvious vegetations. He took vancomycin for a total of three weeks after that hospitalization. He presented on the day of this admission with a four or five-day history of night sweats and a one-day history of chills. He has had no documented fevers at home. In the emergency room, his temperature was 98.4 with a white count of 11,400. Chest x-ray showed no obvious infiltrates. X-ray of the ankle showed no obvious fracture or gas in the soft tissue. A CT scan of the abdomen was performed because of an elevated lipase of 411. His lactate was 2.1. He was admitted to the hospital at this time for further evaluation and treatment. Upon admission, creatinine level was 7.8. Hemoglobin A1c on June of 2016 had been 6.3%. He was restarted on vancomycin and Zosyn. Home medications were restarted as well as blood pressure control as needed. Pain control would also be provided. It was felt that he may need definitive surgery to prevent future infections. The following day, he was seen by Dr. Donald Chirinos. Blood cultures have been obtained and were negative thus far. Vancomycin and Zosyn were continued. Followup blood cultures were going to be obtained. White count was 11.4. A CT scan of the abdomen and pelvis without contrast had been performed as well as an MRI of the right lower extremity without contrast. There was hindfoot destruction of the articular compartment consistent with neuropathic or Charcot joint. Hemodialysis therapy was performed. The patient was seen by Dr. Hermelinda Shaver. The patient was well known to her. The patient had had a fairly recent inpatient evaluation about six weeks previously. There had been a referral regarding Charcot reconstruction. His wound was close to the bone, but it was never known to penetrate deeper than it is now. No debridement was indicated at this time. It appeared to be fairly clean. He underwent diabetes education. On 08/11/2016, he still had some chills. White count was 10.3. Blood cultures were negative. He had no edema. Vancomycin and Zosyn were continued. He also had soaking night sweats. He continued to undergo hemodialysis. On 08/13/2016, he still had chills and sweats. His lungs were clear. His blood cultures were still negative. Diabetes education continued. Hemoglobin A1c on 08/12/2016 had been 6.1%. On 08/14/2016, his chills and sweats had improved. He had undergone a [facility] whole-body scan. There was white cell accumulation in the effusion surrounding the bony fragment consisting of the body of the right talus. No significant accumulation was seen in the right calcaneus or distal right tibia. He had no new complaints. He stated that his sweats had improved. On 08/15/2016, he underwent a two site biopsy, one at the base of the first metatarsal of the foot and the second in the tibiotalar region which was submitted. Attempt to aspirate fluid in the tibiotalar joint were unsuccessful. Discharge planning was performed. On 08/16/2016, he had no new complaints. He had no further night sweats or chills. He was afebrile. Cultures were negative. He had no further chills. Discharge instructions were given. Due to his improved and stable condition, he was discharged home with the above-stated instructions. Information collected by: Faye Verde Discharge Summary [address] [address] NAME: NOLVIA PRICE : 66 STATUS : DIS IN PAT#: [id number] AGE: 46 ADM/REG DATE : 08/09/16 MR#: [id number] REPORT SERV DATE: 08/27/16 DICTATED BY: MG BOWERS DATE: 08/26/16 REPORT STATUS : Draft TRANSCRIBED BY: MODAlf DATE: 08/26/16 I submit the above information as my discharge summary. TG/SAUL Mg Bowers M.D. / [id number] CC: Bg Dorsey III, RALPH D Laura Witherspoon, M.D. Mark Anderson, M.D.
--- NOTE | ~2016-08-09 | HP ---
History And Physical [place] [address] [facility] [place]. [address] NAME: NOLVIA PRICE : 66 STATUS : REG ER PAT#: [id number] AGE: 45 ADM/REG DATE : 08/09/16 MR#: [id number] REPORT SERV DATE: 08/09/16 DICTATED BY: MG BOWERS DATE: 08/09/16 REPORT STATUS : Draft TRANSCRIBED BY: MODL DATE: 08/09/16 DATE OF ADMISSION: 08/09/2016 CHIEF COMPLAINT: Chills. HISTORY OF PRESENT ILLNESS: Mr. Price is a very pleasant 45-year-old white male with end- stage renal disease. He dialyzes at the [facility] Wednesday, Wednesday, and Wednesday through a left forearm AV fistula. He was admitted here at [facility] on 06/29/2016 with MRSA bacteremia. He was seen by Infectious Disease, Cardiology, and Podiatry during that admission as well as GI. Workup during that hospitalization showed no obvious source other than his right foot wound and Charcot ankle. He was placed on vancomycin and an outpatient MARINE on 07/06 showed an EF of 55%, RVSP 35 mmHg, and no obvious vegetations. He took vancomycin for a total of three weeks after that hospitalization. He presents today on Wednesday with a four- to five-day history of night sweats and a one- day history of chills. He has no documented fevers at home and here today in the ER, his temperature is 98.4 with a white count of 11,400. Chest x-ray shows no obvious infiltrates. An x-ray of the ankle shows no obvious fracture or gas in soft tissue. CT of the abdomen was performed because of an elevated lipase of 411, but the results are pending at the time of my dictation. His lactate is 2.1. PAST MEDICAL HISTORY: 1. ESRD, Wednesday, Wednesday, and Wednesday, [facility]. 2. 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 3. Hypertension. 4. Right Charcot ankle, followed closely by Podiatry and Ortho in [place]. He has not had surgery because of the wound. 5. Anemia. 6. History of stroke. 7. History of nephrotic-range proteinuria. 8. Hyperlipidemia. 9. MRSA bacteremia last month as per HPI. MEDICATIONS: Elavil 20 mg h.s., Norvasc 5 mg b.i.d., baby aspirin, BuSpar 5 mg with meals, PhosLo with meals, Coreg 25 mg h.s., vitamin D, Catapres patch #2, Cardizem 120 mg q.h.s., hydralazine 100 mg t.i.d., Cymbalta 60 mg q.h.s., insulin pump, losartan 100 mg daily, melatonin h.s., Lyrica h.s., erythromycin four times per day for gastroparesis. FAMILY HISTORY: No ESRD. SOCIAL HISTORY: . Nonsmoker. REVIEW OF SYSTEMS: Please see HPI. Significant for night sweats and chills with a chronic right foot wound and Charcot ankle. PHYSICAL EXAMINATION: History And Physical [address] [address] NAME: NOLVIA PRICE : 66 STATUS : REG ER PAT#: [id number] AGE: 45 ADM/REG DATE : 08/09/16 MR#: [id number] REPORT SERV DATE: 08/09/16 DICTATED BY: MG BOWERS DATE: 08/09/16 REPORT STATUS : Draft TRANSCRIBED BY: SAUL DATE: 08/09/16 VITAL SIGNS: Temperature 98.4, pulse 82, respirations 16, blood pressure 185/90. He is wearing oxygen per nasal cannula. GENERAL: He is in moderate distress with diffuse diaphoresis and sweating. He is awake and alert, pleasant, good historian. HEENT: Sclerae without icterus. Conjunctivae not injected. Oropharynx is clear. Mucous membranes are dry. NECK: No JVD. LUNGS: He has bilateral rhonchi without dyspnea or tachypnea. CARDIAC: Regular rate and rhythm with audible S4. ABDOMEN: Soft, nontender, nondistended. Bowel sounds present throughout. No rebound, guarding, or peritoneal signs. EXTREMITIES: Show no edema. SKIN: Shows no rash. He is diffusely warm to touch and diaphoretic. Right foot wound is noted with erythema and Charcot deformity. Left forearm AV fistula has palpable thrill and audible bruit. NEURO: Grossly nonfocal. LABORATORY DATA: Sodium 139, potassium 5.4, bicarb 22, BUN 46, creatinine 7.8, calcium 9.2, albumin 3.7. Troponin 0.03. Lipase 44. Procalcitonin 0.76. A1c 6.3% in 06/2016. White count 11,400 with 80% segmented neutrophils, hemoglobin 11.3, platelets 269,000. INR 1.2. ASSESSMENT AND PLAN: Mr. Price has end-stage renal disease, on maintenance dialysis Wednesday, Wednesday, and Wednesday at the [facility], who presents with recurrent chills and sweats with leukocytosis, type 1 diabetes mellitus, hypertension, chronic right Charcot ankle with wound. He had MRSA bacteremia last month, and I am concerned for recurrent process. MARINE was normal on 07/06. Admit to the Renal Service. Restart vancomycin and Zosyn. Ask ID, Podiatry, and Orthopedics to evaluate. Restart home medications and blood pressure control p.r.n. Pain control. Dialysis tomorrow. Check MRI of the right ankle. He may need definitive surgery to prevent future infections? SANDY/SAUL Mg Bowers M.D. / [id number] CC: Gregory Nunez III
[2016-08-09 12:44] LABS: BASOPHILS 0.6 %; BASOPHILS ABSOLUTE 0.07 10/3/uL (0.0-0.16); EOSINOPHILS 2.3 %; EOSINOPHILS ABSOLUTE 0.26 10/3/uL (0.0-0.53); HEMOGLOBIN 11.3 g/dL (13.6-17.8); IMMATURE GRANULOCYTES 0.5 %; IMMATURE GRANULOCYTES ABSOLUTE 0.06 10/3/uL (0.0-0.11); LYMPHOCYTES 9.6 %; LYMPHOCYTES ABSOLUTE 1.09 10/3/uL (0.67-4.30); MEAN CORPUS HGB CONC 34.6 g/dL (32.0-36.0); MEAN CORPUSCULAR HEMOGLOB 33.6 pg (26.0-34.0); MEAN CORPUSCULAR VOLUME 97.3 fL (80-100); MEAN PLATELET VOLUME 10.9 fL (9.2-13.0); NEUTROPHILS ABSOLUTE 9.07 10/3/uL (2.02-8.40); PLATELET COUNT 269 10/3/uL (150-400); RBC DISTRIBUTION WIDTH 14.9 % (12.0-16.0); RED CELL COUNT 3.36 10/6/uL (4.7-6.1); WHITE BLOOD CELLS 11.4 10/3/uL (4.5-10.5)
[2016-08-09 12:46] LABS: HEMATOCRIT 32.7 % (40.0-51.0); MANUAL DIFF NO %
[2016-08-09 12:52] LABS: INTERNATIONAL NORMAL RATI 1.2 UNITS (-); PARTIAL THROMBO TIME 33.8 SEC (22.5-37.2); PROTIME (NOT ORD) 14.9 SEC (12.0-14.5)
[2016-08-09 13:01] LABS: A/G RATIO 0.7 (0.7-1.9); ALBUMIN 3.7 G/DL (3.5-5.0); ALKALINE PHOSPHATASE 164 U/L (45-117); BUN (BLOOD UREA NITROGEN) 46 MG/DL (6-23); CALCIUM, SERUM 9.2 MG/DL (8.5-10.4); CHLORIDE, SERUM 102 MMOL/L (96-112); CO2 (CARBON DIOXIDE) 22 MMOL/L (24-34); CREATININE 7.84 MG/DL (0.70-1.30); GFR AFRICAN AMERICAN 9 ML/MIN (>=60); GFR NON AFRICAN AMERICAN 7 ML/MIN (>=60); GLOBULIN 5.1 G/DL (2.5-4.1); GLUCOSE, SERUM 250 MG/DL (60-99); POTASSIUM, SERUM 5.4 MMOL/L (3.5-5.3); SGOT(AST) 19 U/L (5-40); SGPT(ALT) 23 U/L (5-65); SODIUM, SERUM 139 MMOL/L (135-148); TOTAL BILIRUBIN 0.8 MG/DL (0-1.2); TOTAL PROTEIN 8.8 G/DL (6.0-8.5)
[2016-08-09 13:04] LABS: LACTATE 2.1 MMOL/L (0.3-2.4)
[2016-08-09] MEDS ORDERED: NOVLOGPUMP SC (13:07)
[2016-08-09] MEDS ORDERED: BETHAN25B PO (13:09)
[2016-08-09] MEDS ORDERED: BUSPAR5 PO (13:09)
[2016-08-09] MEDS ORDERED: PHOSLO PO (13:10)
[2016-08-09] MEDS ORDERED: COMPOUNDED EYE OPH (13:16)
[2016-08-09 13:37] LABS: PROCALCITONIN 0.76 ng/mL (<0.5)
[2016-08-09 14:50] LABS: ACETONE NEG
[2016-08-09 15:06] LABS: ALLENS TEST Pos; BE (BASE EXCESS) -1.9 MEQ/L (0 +/- 2.5); CARBOXYHEMOGLOBIN 1.7 % (0-3); HCO3 (ACTUAL BICARBONATE) 23.7 MEQ/L (23-27); HEMOBLOGIN CONTENT 12.6 G/DL (14-18); INSTRUMENT SERIAL # 8087; METHEMOGLOBIN 0.2 % (0-3); O2 CONTENT 13.7 VOL% (18-24); OPERATOR ID 14335; PCO2 (CO2 TENSION) 44 MMHG (35-45); PO2 (O2 TENSION) 46 MMHG (79-93); SAMPLE Arterial; pH 7.35 (7.37-7.43)
[2016-08-10 09:51] LABS: BASOPHILS 0.6 %; BASOPHILS ABSOLUTE 0.06 10/3/uL (0.0-0.16); EOSINOPHILS 4.8 %; EOSINOPHILS ABSOLUTE 0.46 10/3/uL (0.0-0.53); HEMATOCRIT 27.3 % (40.0-51.0); HEMOGLOBIN 9.7 g/dL (13.6-17.8); IMMATURE GRANULOCYTES 0.2 %; IMMATURE GRANULOCYTES ABSOLUTE 0.02 10/3/uL (0.0-0.11); LYMPHOCYTES 11.5 %; MANUAL DIFF NO %; MEAN CORPUS HGB CONC 35.5 g/dL (32.0-36.0); MEAN CORPUSCULAR VOLUME 95.8 fL (80-100); MEAN PLATELET VOLUME 10.8 fL (9.2-13.0); MONOCYTES 10.2 %; MONOCYTES ABSOLUTE 0.98 10/3/uL (0.21-1.20); NEUTROPHILS 72.7 %; NEUTROPHILS ABSOLUTE 6.97 10/3/uL (2.02-8.40); PLATELET COUNT 205 10/3/uL (150-400); RBC DISTRIBUTION WIDTH 14.5 % (12.0-16.0); RED CELL COUNT 2.85 10/6/uL (4.7-6.1); WHITE BLOOD CELLS 9.6 10/3/uL (4.5-10.5)
[2016-08-10 10:10] LABS: CALCIUM, SERUM 8.5 MG/DL (8.5-10.4); CHLORIDE, SERUM 100 MMOL/L (96-112); CO2 (CARBON DIOXIDE) 25 MMOL/L (24-34); POTASSIUM, SERUM 4.2 MMOL/L (3.5-5.3); SODIUM, SERUM 139 MMOL/L (135-148)
[2016-08-10 10:11] LABS: ALBUMIN 2.9 G/DL (3.5-5.0); BUN (BLOOD UREA NITROGEN) 52 MG/DL (6-23); CREATININE 8.57 MG/DL (0.70-1.30); GFR AFRICAN AMERICAN 8 ML/MIN (>=60); GFR NON AFRICAN AMERICAN 7 ML/MIN (>=60); GLUCOSE, SERUM 115 MG/DL (60-99); PHOSPHORUS, SERUM 6.6 MG/DL (2.5-4.5)
[2016-08-11 05:07] LABS: BASOPHILS 0.5 %; BASOPHILS ABSOLUTE 0.05 10/3/uL (0.0-0.16); EOSINOPHILS 4.8 %; HEMOGLOBIN 9.9 g/dL (13.6-17.8); IMMATURE GRANULOCYTES 0.3 %; IMMATURE GRANULOCYTES ABSOLUTE 0.03 10/3/uL (0.0-0.11); LYMPHOCYTES 14.4 %; LYMPHOCYTES ABSOLUTE 1.48 10/3/uL (0.67-4.30); MANUAL DIFF NO %; MEAN CORPUS HGB CONC 34.1 g/dL (32.0-36.0); MEAN CORPUSCULAR HEMOGLOB 33.6 pg (26.0-34.0); MEAN CORPUSCULAR VOLUME 98.3 fL (80-100); MEAN PLATELET VOLUME 10.9 fL (9.2-13.0); MONOCYTES 7.6 %; MONOCYTES ABSOLUTE 0.78 10/3/uL (0.21-1.20); NEUTROPHILS 72.4 %; NEUTROPHILS ABSOLUTE 7.47 10/3/uL (2.02-8.40); PLATELET COUNT 228 10/3/uL (150-400); RED CELL COUNT 2.95 10/6/uL (4.7-6.1); WHITE BLOOD CELLS 10.3 10/3/uL (4.5-10.5)
[2016-08-11 05:20] LABS: ALBUMIN 2.8 G/DL (3.5-5.0); CALCIUM, SERUM 8.5 MG/DL (8.5-10.4); CHLORIDE, SERUM 106 MMOL/L (96-112); CO2 (CARBON DIOXIDE) 25 MMOL/L (24-34); POTASSIUM, SERUM 4.3 MMOL/L (3.5-5.3); SODIUM, SERUM 143 MMOL/L (135-148)
[2016-08-11 05:22] LABS: BUN (BLOOD UREA NITROGEN) 38 MG/DL (6-23); CREATININE 7.02 MG/DL (0.70-1.30); GFR AFRICAN AMERICAN 10 ML/MIN (>=60); GFR NON AFRICAN AMERICAN 8 ML/MIN (>=60); GLUCOSE, SERUM 160 MG/DL (60-99); PHOSPHORUS, SERUM 5.6 MG/DL (2.5-4.5)
[2016-08-12 08:59] LABS: BASOPHILS 0.7 %; BASOPHILS ABSOLUTE 0.08 10/3/uL (0.0-0.16); EOSINOPHILS 5.4 %; EOSINOPHILS ABSOLUTE 0.59 10/3/uL (0.0-0.53); HEMOGLOBIN 10.5 g/dL (13.6-17.8); IMMATURE GRANULOCYTES 0.2 %; IMMATURE GRANULOCYTES ABSOLUTE 0.02 10/3/uL (0.0-0.11); LYMPHOCYTES 14.4 %; LYMPHOCYTES ABSOLUTE 1.59 10/3/uL (0.67-4.30); MEAN CORPUSCULAR HEMOGLOB 33.5 pg (26.0-34.0); MEAN CORPUSCULAR VOLUME 95.8 fL (80-100); MEAN PLATELET VOLUME 10.8 fL (9.2-13.0); MONOCYTES 9.7 %; MONOCYTES ABSOLUTE 1.07 10/3/uL (0.21-1.20); NEUTROPHILS 69.6 %; NEUTROPHILS ABSOLUTE 7.67 10/3/uL (2.02-8.40); PLATELET COUNT 240 10/3/uL (150-400); RBC DISTRIBUTION WIDTH 15.1 % (12.0-16.0); RED CELL COUNT 3.13 10/6/uL (4.7-6.1)
[2016-08-12 09:03] LABS: MANUAL DIFF NO %
[2016-08-12 09:20] LABS: BUN (BLOOD UREA NITROGEN) 49 MG/DL (6-23); CALCIUM, SERUM 9.1 MG/DL (8.5-10.4); CHLORIDE, SERUM 100 MMOL/L (96-112); CO2 (CARBON DIOXIDE) 22 MMOL/L (24-34); CREATININE 8.96 MG/DL (0.70-1.30); GFR AFRICAN AMERICAN 7 ML/MIN (>=60); GFR NON AFRICAN AMERICAN 6 ML/MIN (>=60); GLUCOSE, SERUM 94 MG/DL (60-99); POTASSIUM, SERUM 4.6 MMOL/L (3.5-5.3); SODIUM, SERUM 138 MMOL/L (135-148)
[2016-08-13 07:28] LABS: BASOPHILS 0.8 %; BASOPHILS ABSOLUTE 0.07 10/3/uL (0.0-0.16); EOSINOPHILS 5.7 %; EOSINOPHILS ABSOLUTE 0.49 10/3/uL (0.0-0.53); HEMATOCRIT 31.9 % (40.0-51.0); IMMATURE GRANULOCYTES 0.2 %; IMMATURE GRANULOCYTES ABSOLUTE 0.02 10/3/uL (0.0-0.11); LYMPHOCYTES ABSOLUTE 1.81 10/3/uL (0.67-4.30); MEAN CORPUS HGB CONC 34.5 g/dL (32.0-36.0); MEAN CORPUSCULAR HEMOGLOB 33.6 pg (26.0-34.0); MEAN CORPUSCULAR VOLUME 97.6 fL (80-100); MEAN PLATELET VOLUME 10.3 fL (9.2-13.0); MONOCYTES 10.6 %; MONOCYTES ABSOLUTE 0.91 10/3/uL (0.21-1.20); NEUTROPHILS 61.7 %; NEUTROPHILS ABSOLUTE 5.31 10/3/uL (2.02-8.40); PLATELET COUNT 221 10/3/uL (150-400); RBC DISTRIBUTION WIDTH 15.2 % (12.0-16.0); RED CELL COUNT 3.27 10/6/uL (4.7-6.1); WHITE BLOOD CELLS 8.6 10/3/uL (4.5-10.5)
[2016-08-13 07:31] LABS: MANUAL DIFF NO %
[2016-08-13 07:49] LABS: CALCIUM, SERUM 9.1 MG/DL (8.5-10.4); CHLORIDE, SERUM 101 MMOL/L (96-112); CO2 (CARBON DIOXIDE) 25 MMOL/L (24-34); GFR AFRICAN AMERICAN 10 ML/MIN (>=60); GFR NON AFRICAN AMERICAN 8 ML/MIN (>=60); GLUCOSE, SERUM 101 MG/DL (60-99); POTASSIUM, SERUM 4.1 MMOL/L (3.5-5.3); SODIUM, SERUM 141 MMOL/L (135-148)
[2016-08-13 07:50] LABS: BUN (BLOOD UREA NITROGEN) 38 MG/DL (6-23); CREATININE 7.03 MG/DL (0.70-1.30)
[2016-08-14 08:33] LABS: BASOPHILS 0.6 %; BASOPHILS ABSOLUTE 0.08 10/3/uL (0.0-0.16); EOSINOPHILS 4.1 %; EOSINOPHILS ABSOLUTE 0.51 10/3/uL (0.0-0.53); HEMATOCRIT 30.2 % (40.0-51.0); HEMOGLOBIN 10.7 g/dL (13.6-17.8); IMMATURE GRANULOCYTES 0.2 %; IMMATURE GRANULOCYTES ABSOLUTE 0.03 10/3/uL (0.0-0.11); LYMPHOCYTES 13.4 %; LYMPHOCYTES ABSOLUTE 1.68 10/3/uL (0.67-4.30); MEAN CORPUS HGB CONC 35.4 g/dL (32.0-36.0); MEAN CORPUSCULAR HEMOGLOB 33.8 pg (26.0-34.0); MEAN CORPUSCULAR VOLUME 95.3 fL (80-100); MEAN PLATELET VOLUME 11.2 fL (9.2-13.0); MONOCYTES ABSOLUTE 1.26 10/3/uL (0.21-1.20); NEUTROPHILS 71.7 %; NEUTROPHILS ABSOLUTE 9.02 10/3/uL (2.02-8.40); PLATELET COUNT 252 10/3/uL (150-400); RED CELL COUNT 3.17 10/6/uL (4.7-6.1)
[2016-08-14 08:34] LABS: MANUAL DIFF NO %; WHITE BLOOD CELLS 12.6 10/3/uL (4.5-10.5)
[2016-08-14 08:45] LABS: ALBUMIN 3.2 G/DL (3.5-5.0); BUN (BLOOD UREA NITROGEN) 53 MG/DL (6-23); CALCIUM, SERUM 8.9 MG/DL (8.5-10.4); CHLORIDE, SERUM 99 MMOL/L (96-112); CO2 (CARBON DIOXIDE) 23 MMOL/L (24-34); CREATININE 9.55 MG/DL (0.70-1.30); GFR AFRICAN AMERICAN 7 ML/MIN (>=60); GFR NON AFRICAN AMERICAN 6 ML/MIN (>=60); GLUCOSE, SERUM 197 MG/DL (60-99); PHOSPHORUS, SERUM 8.8 MG/DL (2.5-4.5); POTASSIUM, SERUM 5.6 MMOL/L (3.5-5.3); SODIUM, SERUM 137 MMOL/L (135-148)
== END 2016-08-16 17:39 | disposition home or self-care (01) | DRG 629 ==
LOC: ER 12:02 → 4SO 18:26
PROVIDERS: Internal Medicine Nephrology; Nurse Practitioner; Nurse Practitioner Family
DX: E10.621 Type 1 diabetes mellitus with foot ulcer (principal); I12.0 Hypertensive chronic kidney disease with stage 5 chronic kidney disease or end stage renal disease; L97.519 Non-pressure chronic ulcer of other part of right foot with unspecified severity; N18.6 End stage renal disease; E10.22 Type 1 diabetes mellitus with diabetic chronic kidney disease; E10.610 Type 1 diabetes mellitus with diabetic neuropathic arthropathy; Z99.2 Dependence on renal dialysis; K31.84 Gastroparesis; E78.5 Hyperlipidemia, unspecified; Z86.14 Personal history of Methicillin resistant Staphylococcus aureus infection; Z86.73 Personal history of transient ischemic attack (TIA), and cerebral infarction without residual deficits; D63.1 Anemia in chronic kidney disease; Z79.82 Long term (current) use of aspirin; Z79.4 Long term (current) use of insulin; Z79.2 Long term (current) use of antibiotics; Z96.41 Presence of insulin pump (external) (internal); E10.43 Type 1 diabetes mellitus with diabetic autonomic (poly)neuropathy
CPT/HCPCS: 10030; 20206; 36600; 71020; 73610-RT; 73721-RT; 74176; 78806; 80053; 80069; 80202; 82009; 82306; 82805; 82947; 82962; 83036; 83605; 83690; 83735; 84145; 84443; 85025; 85610; 85730; 87040; 87070; 87075; 87077; 87102; 87186; 87205; 88307; 88311; 93005; 96374; 96375; 96376; 99285; A9270-GY; A9569; G0257; J0360; J0610; J1170; J2250; J2405; J2543; J3010; J3370; P9047

== ENCOUNTER 2016-08-26 20:00 | Emergency (ER) | payer BC, MEDICARE ==
[~2016-08-26 20:00] MED LIST changes: +BETHAN25B PO; +COMPOUNDED EYE OPH
== END 2016-08-26 23:05 | disposition home or self-care (01) ==
LOC: ER 20:00
PROC: 0HQNXZZ Repair Left Foot Skin, External Approach (ICD-10-PCS; principal; 2016-08-26)
DX: S92.422B Displaced fracture of distal phalanx of left great toe, initial encounter for open fracture (principal); Z86.73 Personal history of transient ischemic attack (TIA), and cerebral infarction without residual deficits; E78.5 Hyperlipidemia, unspecified; D64.9 Anemia, unspecified; E10.43 Type 1 diabetes mellitus with diabetic autonomic (poly)neuropathy; K31.84 Gastroparesis; N18.6 End stage renal disease; Z99.2 Dependence on renal dialysis; Z88.8 Allergy status to other drugs, medicaments and biological substances; Z79.899 Other long term (current) drug therapy; Z79.82 Long term (current) use of aspirin; X58.XXXA Exposure to other specified factors, initial encounter; Z79.4 Long term (current) use of insulin
CPT/HCPCS: 73660-LT; 90471; 90714; 96374; 96375; 99284; J0690; J1170

== ENCOUNTER 2016-09-05 23:00 | Emergency (ER) | payer BC, MEDICARE ==
[2016-09-05 20:41] LABS: BASOPHILS 0.2 %; BASOPHILS ABSOLUTE 0.03 10/3/uL (0.0-0.16); EOSINOPHILS ABSOLUTE 0.16 10/3/uL (0.0-0.53); ER CBC TAT 0 Hrs 05 Mins; HEMATOCRIT 27.3 % (40.0-51.0); HEMOGLOBIN 9.5 g/dL (13.6-17.8); IMMATURE GRANULOCYTES 0.2 %; IMMATURE GRANULOCYTES ABSOLUTE 0.03 10/3/uL (0.0-0.11); LYMPHOCYTES 1.8 %; LYMPHOCYTES ABSOLUTE 0.29 10/3/uL (0.67-4.30); MEAN CORPUS HGB CONC 34.8 g/dL (32.0-36.0); MEAN CORPUSCULAR HEMOGLOB 33.3 pg (26.0-34.0); MEAN CORPUSCULAR VOLUME 95.8 fL (80-100); MEAN PLATELET VOLUME 10.3 fL (9.2-13.0); MONOCYTES 2.2 %; MONOCYTES ABSOLUTE 0.35 10/3/uL (0.21-1.20); NEUTROPHILS 94.6 %; NEUTROPHILS ABSOLUTE 14.99 10/3/uL (2.02-8.40); PLATELET COUNT 257 10/3/uL (150-400); RED CELL COUNT 2.85 10/6/uL (4.7-6.1); WHITE BLOOD CELLS 15.9 10/3/uL (4.5-10.5)
[2016-09-05 20:45] LABS: MANUAL DIFF NO %
[2016-09-05 21:00] LABS: BUN (BLOOD UREA NITROGEN) 42 MG/DL (6-23); CALCIUM, SERUM 9.5 MG/DL (8.5-10.4); CHLORIDE, SERUM 96 MMOL/L (96-112); CO2 (CARBON DIOXIDE) 27 MMOL/L (24-34); CREATININE 6.58 MG/DL (0.70-1.30); DIRECT BILIRUBIN 0.2 MG/DL (0.0-0.4); GFR AFRICAN AMERICAN 11 ML/MIN (>=60); GFR NON AFRICAN AMERICAN 9 ML/MIN (>=60); GLUCOSE, SERUM 191 MG/DL (60-99); INDIRECT BILIRUBIN(NOT ORDER) 0.3 MG/DL (0.1-0.9); POTASSIUM, SERUM 4.4 MMOL/L (3.5-5.3); SODIUM, SERUM 130 MMOL/L (135-148); TOTAL BILIRUBIN 0.5 MG/DL (0-1.2)
[2016-09-05 21:09] LABS: ASCORBIC ACID (UR NOT ORDER) NEG (NEG); BILIRUBIN, URINE NEGATIVE (NEG); ER URINALYSIS TAT 0 Hrs 15 Mins; KETONE, URINE NEGATIVE (NEG); LEUKOCYTE ESTERASE(NOT OR SMALL (NEG); NITRITE (URINE) NEG (NEG); WBC (NOT ORDERED) (RFLEX) 13 (0-5)
[2016-09-05 22:06] LABS: ALBUMIN 3.2 G/DL (3.5-5.0); ALKALINE PHOSPHATASE 142 U/L (45-117); SGOT(AST) 16 U/L (5-40); SGPT(ALT) 16 U/L (5-65)
== END 2016-09-06 02:33 | disposition home or self-care (01) ==
LOC: ER 23:00
PROVIDERS: Emergency Medicine
DX: R10.13 Epigastric pain (principal); S90.32XA Contusion of left foot, initial encounter; R10.12 Left upper quadrant pain; D72.829 Elevated white blood cell count, unspecified; I12.9 Hypertensive chronic kidney disease with stage 1 through stage 4 chronic kidney disease, or unspecified chronic kidney disease; N18.9 Chronic kidney disease, unspecified; J45.909 Unspecified asthma, uncomplicated; F32.9 Major depressive disorder, single episode, unspecified; E11.22 Type 2 diabetes mellitus with diabetic chronic kidney disease; D64.9 Anemia, unspecified; Z87.01 Personal history of pneumonia (recurrent); Z86.73 Personal history of transient ischemic attack (TIA), and cerebral infarction without residual deficits; Z88.5 Allergy status to narcotic agent; Z88.8 Allergy status to other drugs, medicaments and biological substances; Z88.7 Allergy status to serum and vaccine; Z79.82 Long term (current) use of aspirin; Z79.899 Other long term (current) drug therapy; Z79.4 Long term (current) use of insulin
CPT/HCPCS: 71010; 73610-RT; 73630-LT; 73630-RT; 74176; 80048; 80076; 81001; 82247; 82248; 83605; 85025; 87040; 87077; 87086; 87150; 87186; 96374; 96375; 99285; A9270-GY; J2405

== ENCOUNTER 2016-09-06 22:04 | Inpatient (IN) | payer BC, MEDICARE ==
--- NOTE | ~2016-09-06 | HP ---
History And Physical [place] [address] [place]. [address] NAME: NOLVIA PRICE : 66 STATUS : ADM IN [facility]#: [id number] AGE: 46 ADM/REG DATE : 09/07/16 MR#: [id number] REPORT SERV DATE: 09/07/16 DICTATED BY: DATE: REPORT STATUS : Draft TRANSCRIBED BY: MODL DATE: 09/07/16 DATE OF ADMISSION: 09/07/2016 CHIEF COMPLAINT: Fever and positive blood cultures. HISTORY OF PRESENT ILLNESS: Mr. Price is a 46-year-old white male with an extensive past medical history that includes end-stage renal disease, multiple bouts of bacteremia, chronic right Charcot foot wounds, followed by Dr. Shaver. His last hospitalization was approximately a month ago, where he was having chills and sweats. During that hospitalization, he had full evaluation for infection as an etiology, and it was just felt that his chills and sweats were actually because of bethanechol that was given for gastroparesis and the symptoms went away before discharge when that medicine was discontinued. About 6-8 weeks ago, he had positive blood cultures. He had a MARINE. All workup for that was negative. He presents back to the emergency room and originally on Wednesday, with nausea and vomiting was in the emergency room and discharged as it was felt that this was most likely gastroenteritis. Although, he did have a fever up to 102.6. He had blood cultures drawn that came back positive, and he was instructed to come back to the emergency room. He has had no further nausea or vomiting. His left foot, approximately two weeks ago, he scrubbed his toe and broke it, and he had a laceration and now, he has significant redness around it with some clear drainage. [place] this may be the source of the positive blood cultures. He is currently experiencing nausea, also vomiting. He is having some neck and back pain following the nausea-vomiting episodes. No other symptoms at this time. PAST MEDICAL HISTORY: End-stage renal disease with MRSA bacteremia, diabetes, hypertension, right Charcot foot, anemia, CVA, nephrotic proteinuria, and hyperlipidemia. SOCIAL HISTORY: He is , lives with . No tobacco, alcohol, or illicit drug use. ALLERGIES: ACETAMINOPHEN. FAMILY MEDICAL HISTORY: No end-stage renal disease. MEDICATIONS: At home: Amitriptyline, amlodipine, aspirin, BuSpar, calcium acetate, Coreg, vitamin D, clonidine patch, Cardizem, Cymbalta, hydralazine, insulin pump, Cozaar, melatonin, ondansetron, Lyrica, erythromycin, Vicoprofen, and eye drops. REVIEW OF SYSTEMS: A 12-point review of systems obtained and negative with the exception of that in the HPI. PHYSICAL EXAMINATION: VITAL SIGNS: Temp 98, blood pressure 153/78, pulse 72, respiratory rate 18, O2 saturation is 95%. GENERAL: This is a pleasant and cooperative white male. He is awake, alert, and oriented x3. No acute distress. Answers questions appropriately. HEENT: Normocephalic and atraumatic. Conjunctivae clear. Sclerae nonicteric. Oral mucosa History And Physical [address] [address] NAME: NOLVIA PRICE : 66 STATUS : ADM IN [facility]#: [id number] AGE: 46 ADM/REG DATE : 09/07/16 MR#: [id number] REPORT SERV DATE: 09/07/16 DICTATED BY: DATE: REPORT STATUS : Draft TRANSCRIBED BY: MODL DATE: 09/07/16 is moist. NECK: Supple. Carotids are brisk. Neck veins flat. No lymphadenopathy. LUNGS: Respirations, even and unlabored. Breath sounds, clear to auscultation. HEART: Rate is regular. I do not hear any murmur, rub, or gallop. ABDOMEN: Soft and nontender. Bowel sounds active. No masses or hepatosplenomegaly. No bruits. No CVA tenderness. BACK: Within normal limits. EXTREMITIES: No edema, cyanosis, or clubbing. SKIN: Warm, dry, and intact other than his wounds. To his feet, to the left heel, he has a pressure ulcer, it is not open, stage I. To the right great toe, he has a wound, that is a laceration with sutures. It has surrounding erythema and some clear drainage, and to the right foot Charcot foot, the dressing is dry and intact. It was just removed by Dr. Chirinos who states that is chronic and stable. NEURO: No focal deficits. Mood and affect, pleasant and appropriate. PERTINENT LABS AND X-RAYS: WBC is 8, H and H 7 and 22, platelets 190,000. Sodium 133, potassium 4.2, chloride 93, CO2 of 30, BUN of 57, creatinine 9, albumin of 2.8. LFTs are unremarkable. Lactate 1.6. Positive blood cultures for gram-positive cocci. IMPRESSION: 1. Gram-positive bacteremia with fever. 2. Left great toe laceration with cellulitis. 3. Nausea and vomiting, resolved. 4. End-stage renal disease. 5. Chronic right wounds with Charcot foot. 6. Diabetes, uses insulin pen. 7. Diabetic gastroparesis. 8. Diabetic neuropathy. 9. Left heel pressure wound. PLAN: Antibiotics, he has been started empirically on vancomycin. We will follow up on culture and sensitivity. ID consult has already been placed and we discussed care with Dr. Chirinos. Also, we will go ahead and consult Dr. Shaver for Podiatry. The patient is concerned with his ongoing recurrent infections regarding the need for possible amputation of his right foot and has asked about second opinion. I do not see any vascular studies that have been done before, and he denies any history of this in the past. We will discuss with Dr. Ramirez and consider Vascular consultation and see what Dr. Shea's opinion for this he has. Further orders and recommendations pending clinical course. NITO/SAUL WILLIAM Oconnell / [id number] History And Physical [address] [address] NAME: NOLVIA PRICE : 66 STATUS : ADM IN [facility]#: [id number] AGE: 46 ADM/REG DATE : 09/07/16 MR#: [id number] REPORT SERV DATE: 09/07/16 DICTATED BY: DATE: REPORT STATUS : Draft TRANSCRIBED BY: SAUL DATE: 09/07/16 CC: Rey Morales M.D.
--- NOTE | ~2016-09-06 | CN ---
Consultation Report [facility] [address] [place]. [address] NAME: NOLVIA PRICE : 66 STATUS : ADM IN [facility]#: [id number] AGE: 46 ADM/REG DATE : 09/07/16 MR#: [id number] REPORT SERV DATE: 09/09/16 DICTATED BY: ARMEN SHEA DATE: 09/08/16 REPORT STATUS : Draft TRANSCRIBED BY: MODL DATE: 09/08/16 CONSULT DATE OF CONSULTATION: 09/08/2016 REASON FOR CONSULTATION: Evaluation for right foot wound. BRIEF HISTORY: The patient is a 46-year-old gentleman with a past medical history significant for end-stage renal disease, diabetes, Charcot foot on the right managed by Dr. Shaver, hypertension, stroke, and hyperlipidemia, who is admitted to the hospital with bacteremia. It is thought that his right foot is infected again, as he has some wound on it and previously had an effusion that appeared to localize on a tagged white blood cell scan last month. I was consulted for evaluation, as the patient wants another opinion about management of his right foot. The patient denies any complaints. He says that he has had right foot deformity for years now. He has actually seen a foot and ankle reconstruction surgeon in [place], who reportedly wanted his wounds to heal before he would do a reconstructive procedure. The patient has been unable to get the wound healed to move forward and he has been essentially nonambulatory for the past three years. Most recently, he has developed a wound on his left foot. This has forced him to walk on his malaligned right foot and ankle. The patient denies any complaints other than some pain at his right ankle. He has had some nausea and vomiting. PAST MEDICAL HISTORY: As above. SURGICAL HISTORY: Left radiocephalic fistula. SOCIAL HISTORY: He is , lives with his , and denies any tobacco, alcohol, or drug use. ALLERGIES: ARE LISTED ACETAMINOPHEN, BUT I DID NOT ASK HIM HIS REACTION TO THIS. FAMILY HISTORY: Noncontributory. REVIEW OF SYSTEMS: A complete review of systems was performed and is negative with the exception of the aforementioned findings. PHYSICAL EXAMINATION: VITAL SIGNS: Documented on the chart and were reviewed. GENERAL: The patient is awake, alert, and oriented, in no apparent distress. HEAD AND NECK: Benign without any carotid bruits. HEART: Regular rate and rhythm. LUNGS: Clear. ABDOMEN: Soft, nontender, nondistended with a nonaneurysmal aorta. Consultation Report [address] [place]. [address] NAME: NOLVIA PRICE : 66 STATUS : ADM IN PAT#: [id number] AGE: 46 ADM/REG DATE : 09/07/16 MR#: [id number] REPORT SERV DATE: 09/09/16 DICTATED BY: ARMEN SHEA DATE: 09/08/16 REPORT STATUS : Draft TRANSCRIBED BY: SAUL DATE: 09/08/16 EXTREMITIES: He has a normal complement of upper extremity pulses without any significant edema or ischemic ulcerations. He has a good thrill within his left radiocephalic fistula. Examination of the lower extremities reveals palpable femoral pulses. I can feel popliteal and pedal pulses bilaterally. The pulses in his right ankle are a little weak, but it may be because of the positioning of his foot. NEUROLOGICAL: Grossly nonfocal. MUSCULOSKELETAL: Reveals no flexion contractures, but he does have some wasting of his muscle along his hands. This is particularly prominent on the left hand. LABORATORY DATA: His laboratory investigations reveal anemia, but no significant leukocytosis. The remainder of his serum chemistry is consistent with his renal failure. ASSESSMENT AND PLAN: It looks like this gentleman has a Charcot foot that I do not think will be salvageable. It is suspected that this foot is the source of his infection. I think that this gentleman is best served with a right [id number] amputation. Risks, benefits, and alternatives were discussed. He wants to go see Dr. Torrez for another opinion about his ankle. I think that this is a great plan, as I think that Dr. Torrez would be the most qualified person to weigh in on whether his foot is salvageable and what procedure would need to be done. I would offload his heels until then. His wound should be painted with Betadine. LOUIS/SAUL Armen Shea M.D. / [id number] CC: Bg Dorsey;ER III WILLIAM Oconnell
[2016-09-07 03:12] LABS: BASOPHILS 0.6 %; BASOPHILS ABSOLUTE 0.05 10/3/uL (0.0-0.16); EOSINOPHILS 2.5 %; EOSINOPHILS ABSOLUTE 0.22 10/3/uL (0.0-0.53); HEMOGLOBIN 7.9 g/dL (13.6-17.8); IMMATURE GRANULOCYTES 0.3 %; IMMATURE GRANULOCYTES ABSOLUTE 0.03 10/3/uL (0.0-0.11); LYMPHOCYTES 11.5 %; MEAN CORPUS HGB CONC 34.5 g/dL (32.0-36.0); MEAN CORPUSCULAR HEMOGLOB 34.2 pg (26.0-34.0); MEAN PLATELET VOLUME 10.6 fL (9.2-13.0); MONOCYTES 8.4 %; MONOCYTES ABSOLUTE 0.73 10/3/uL (0.21-1.20); NEUTROPHILS 76.7 %; NEUTROPHILS ABSOLUTE 6.69 10/3/uL (2.02-8.40); PLATELET COUNT 180 10/3/uL (150-400); RBC DISTRIBUTION WIDTH 15.1 % (12.0-16.0); RED CELL COUNT 2.31 10/6/uL (4.7-6.1)
[2016-09-07 03:13] LABS: ER CBC TAT 0 Hrs 15 Mins; HEMATOCRIT 22.9 % (40.0-51.0); MANUAL DIFF NO %; MEAN CORPUSCULAR VOLUME 99.1 fL (80-100); WHITE BLOOD CELLS 8.7 10/3/uL (4.5-10.5)
[2016-09-07 03:35] LABS: A/G RATIO 0.7 (0.7-1.9); ALBUMIN 2.8 G/DL (3.5-5.0); CALCIUM, SERUM 8.6 MG/DL (8.5-10.4); CHLORIDE, SERUM 93 MMOL/L (96-112); CO2 (CARBON DIOXIDE) 30 MMOL/L (24-34); GLOBULIN 4.2 G/DL (2.5-4.1); POTASSIUM, SERUM 4.2 MMOL/L (3.5-5.3); SGOT(AST) 15 U/L (5-40); SGPT(ALT) 18 U/L (5-65); SODIUM, SERUM 133 MMOL/L (135-148); TOTAL BILIRUBIN 0.4 MG/DL (0-1.2)
[2016-09-07 03:39] LABS: ALKALINE PHOSPHATASE 125 U/L (45-117); BUN (BLOOD UREA NITROGEN) 57 MG/DL (6-23); CREATININE 9.06 MG/DL (0.70-1.30); GFR AFRICAN AMERICAN 7 ML/MIN (>=60); GFR NON AFRICAN AMERICAN 6 ML/MIN (>=60); GLUCOSE, SERUM 240 MG/DL (60-99)
[2016-09-08 06:27] LABS: BASOPHILS 0.7 %; BASOPHILS ABSOLUTE 0.05 10/3/uL (0.0-0.16); EOSINOPHILS 5.1 %; EOSINOPHILS ABSOLUTE 0.36 10/3/uL (0.0-0.53); HEMATOCRIT 23.4 % (40.0-51.0); HEMOGLOBIN 7.9 g/dL (13.6-17.8); IMMATURE GRANULOCYTES 0.7 %; IMMATURE GRANULOCYTES ABSOLUTE 0.05 10/3/uL (0.0-0.11); LYMPHOCYTES 16.7 %; LYMPHOCYTES ABSOLUTE 1.18 10/3/uL (0.67-4.30); MANUAL DIFF NO %; MEAN CORPUS HGB CONC 33.8 g/dL (32.0-36.0); MEAN CORPUSCULAR HEMOGLOB 33.8 pg (26.0-34.0); MEAN PLATELET VOLUME 11.1 fL (9.2-13.0); MONOCYTES 14.4 %; MONOCYTES ABSOLUTE 1.02 10/3/uL (0.21-1.20); NEUTROPHILS 62.4 %; NEUTROPHILS ABSOLUTE 4.41 10/3/uL (2.02-8.40); PLATELET COUNT 185 10/3/uL (150-400); RED CELL COUNT 2.34 10/6/uL (4.7-6.1); WHITE BLOOD CELLS 7.1 10/3/uL (4.5-10.5)
[2016-09-08 06:37] LABS: ALBUMIN 2.6 G/DL (3.5-5.0); CALCIUM, SERUM 8.3 MG/DL (8.5-10.4); CO2 (CARBON DIOXIDE) 28 MMOL/L (24-34); GLUCOSE, SERUM 232 MG/DL (60-99); POTASSIUM, SERUM 4.4 MMOL/L (3.5-5.3); SODIUM, SERUM 139 MMOL/L (135-148)
[2016-09-08 06:38] LABS: BUN (BLOOD UREA NITROGEN) 35 MG/DL (6-23); CHLORIDE, SERUM 103 MMOL/L (96-112); GFR AFRICAN AMERICAN 11 ML/MIN (>=60); GFR NON AFRICAN AMERICAN 9 ML/MIN (>=60); PHOSPHORUS, SERUM 4.7 MG/DL (2.5-4.5)
[2016-09-09 13:58] LABS: BASOPHILS 0.5 %; BASOPHILS ABSOLUTE 0.04 10/3/uL (0.0-0.16); EOSINOPHILS 5.6 %; EOSINOPHILS ABSOLUTE 0.47 10/3/uL (0.0-0.53); HEMATOCRIT 22.8 % (40.0-51.0); IMMATURE GRANULOCYTES 0.8 %; IMMATURE GRANULOCYTES ABSOLUTE 0.07 10/3/uL (0.0-0.11); LYMPHOCYTES 16.6 %; MEAN CORPUS HGB CONC 35.1 g/dL (32.0-36.0); MEAN PLATELET VOLUME 11.1 fL (9.2-13.0); MONOCYTES 10.2 %; MONOCYTES ABSOLUTE 0.86 10/3/uL (0.21-1.20); NEUTROPHILS 66.3 %; NEUTROPHILS ABSOLUTE 5.59 10/3/uL (2.02-8.40); PLATELET COUNT 178 10/3/uL (150-400); RED CELL COUNT 2.35 10/6/uL (4.7-6.1); WHITE BLOOD CELLS 8.4 10/3/uL (4.5-10.5)
[2016-09-09 14:03] LABS: MANUAL DIFF NO %
[2016-09-09 14:10] LABS: ALBUMIN 2.5 G/DL (3.5-5.0); CHLORIDE, SERUM 100 MMOL/L (96-112); CO2 (CARBON DIOXIDE) 25 MMOL/L (24-34); POTASSIUM, SERUM 4.8 MMOL/L (3.5-5.3); SODIUM, SERUM 138 MMOL/L (135-148)
[2016-09-09 14:11] LABS: BUN (BLOOD UREA NITROGEN) 46 MG/DL (6-23); CREATININE 8.27 MG/DL (0.70-1.30); GFR AFRICAN AMERICAN 8 ML/MIN (>=60); GFR NON AFRICAN AMERICAN 7 ML/MIN (>=60); GLUCOSE, SERUM 86 MG/DL (60-99); PHOSPHORUS, SERUM 5.7 MG/DL (2.5-4.5)
[2016-09-09] MEDS ORDERED: GARACR15 TOP (18:27)
== END 2016-09-09 19:22 | disposition home or self-care (01) | DRG 871 ==
LOC: ER 22:04 → ER/OF 09-07 06:26 → 2SO 09-07 06:49
PROVIDERS: Nurse Practitioner; Specialist
PROC: 5A1D60Z (ICD-10-PCS; principal; 2016-09-07)
DX: A41.02 Sepsis due to Methicillin resistant Staphylococcus aureus (principal); N18.6 End stage renal disease; E11.22 Type 2 diabetes mellitus with diabetic chronic kidney disease; K31.84 Gastroparesis; I12.0 Hypertensive chronic kidney disease with stage 5 chronic kidney disease or end stage renal disease; L89.629 Pressure ulcer of left heel, unspecified stage; E11.40 Type 2 diabetes mellitus with diabetic neuropathy, unspecified; R65.20 Severe sepsis without septic shock; E78.00 Pure hypercholesterolemia, unspecified; Z96.41 Presence of insulin pump (external) (internal); K31.89 Other diseases of stomach and duodenum; E11.43 Type 2 diabetes mellitus with diabetic autonomic (poly)neuropathy; E11.610 Type 2 diabetes mellitus with diabetic neuropathic arthropathy; D64.9 Anemia, unspecified; E78.5 Hyperlipidemia, unspecified; Z79.4 Long term (current) use of insulin; Z99.2 Dependence on renal dialysis; Z86.73 Personal history of transient ischemic attack (TIA), and cerebral infarction without residual deficits; R10.13 Epigastric pain; S90.32XA Contusion of left foot, initial encounter; D72.829 Elevated white blood cell count, unspecified; J45.909 Unspecified asthma, uncomplicated; F32.9 Major depressive disorder, single episode, unspecified; Z87.01 Personal history of pneumonia (recurrent); Z88.5 Allergy status to narcotic agent; Z88.9 Allergy status to unspecified drugs, medicaments and biological substances; Z88.7 Allergy status to serum and vaccine; Z79.82 Long term (current) use of aspirin; Z79.899 Other long term (current) drug therapy
CPT/HCPCS: 71010; 73610-RT; 73630-LT; 73630-RT; 74176; 80048; 80053; 80069; 80076; 81001; 82247; 82248; 82962; 83605; 85025; 87040; 87077; 87086; 87150; 87186; 96374; 96375; 99285; A9270-GY; G0257; J2405; J3370

== ENCOUNTER 2016-09-16 10:06 | Observation (INO) | payer BC, MEDICARE ==
--- NOTE | ~2016-09-16 | OP ---
Record Of Operation [facility] [address] [place]. [address] NAME: NOLVIA PRICE : 66 STATUS : ADM IN PAT#: [id number] AGE: 46 ADM/REG DATE : 09/16/16 MR#: [id number] REPORT SERV DATE: 09/17/16 DICTATED BY: ARMEN SHEA DATE: 09/16/16 REPORT STATUS : Draft TRANSCRIBED BY: SAUL DATE: 09/16/16 DATE OF PROCEDURE: 09/16/2016 PREOPERATIVE DIAGNOSIS: Open fracture with large soft tissue defect of the left great toe. POSTOPERATIVE DIAGNOSIS: Open fracture with large soft tissue defect of the left great toe. PROCEDURE: Left great toe amputation. SURGEON: Armen Shea M.D. ACCOUNTING ADMINISTRATIVE ASSISTANT: Leodan Ramirez. ANESTHESIA: General. INDICATIONS: The patient is a 46-year-old, with renal failure and diabetes, who has had trauma to his left great toe. He actually has an open fracture with a large soft tissue defect. He had significant bleeding, so he was consented for amputation. DESCRIPTION OF PROCEDURE: After informed consent was obtained, the patient was taken to the operating room, and placed in the supine position on the operating table. He was intubated and general anesthesia was administered. His left foot was prepped and draped in usual sterile fashion. I began by making a transverse skin incision along the plantar aspect of the foot. I deepened the incision. I removed the fractured portion of the toe at the interphalangeal joint. The soft tissue defect extended proximal to the fracture. Thus, I transected the proximal phalanx. I beveled the edges. I washed out the wound. I freshened the skin edges and closed the toe amputation site with an anterior flap. The patient tolerated the procedure well without any intraprocedural complications noted. LOUIS/SAUL Armen Shea M.D. / [id number] CC: Bg Romero III, RALPH D Loyd Witherspoon, D.PManish
[2016-09-16 12:08] LABS: BASOPHILS 0.5 %; BASOPHILS ABSOLUTE 0.05 10/3/uL (0.0-0.16); EOSINOPHILS 3.6 %; EOSINOPHILS ABSOLUTE 0.34 10/3/uL (0.0-0.53); ER CBC TAT 0 Hrs 03 Mins; HEMATOCRIT 24.8 % (40.0-51.0); HEMOGLOBIN 8.6 g/dL (13.6-17.8); IMMATURE GRANULOCYTES 0.6 %; IMMATURE GRANULOCYTES ABSOLUTE 0.06 10/3/uL (0.0-0.11); LYMPHOCYTES 14.5 %; LYMPHOCYTES ABSOLUTE 1.39 10/3/uL (0.67-4.30); MEAN CORPUS HGB CONC 34.7 g/dL (32.0-36.0); MEAN CORPUSCULAR HEMOGLOB 33.9 pg (26.0-34.0); MEAN CORPUSCULAR VOLUME 97.6 fL (80-100); MEAN PLATELET VOLUME 10.3 fL (9.2-13.0); MONOCYTES 10.7 %; MONOCYTES ABSOLUTE 1.02 10/3/uL (0.21-1.20); NEUTROPHILS 70.1 %; NEUTROPHILS ABSOLUTE 6.71 10/3/uL (2.02-8.40); RBC DISTRIBUTION WIDTH 14.6 % (12.0-16.0); RED CELL COUNT 2.54 10/6/uL (4.7-6.1); WHITE BLOOD CELLS 9.6 10/3/uL (4.5-10.5)
[2016-09-16 12:11] LABS: MANUAL DIFF NO %; PLATELET COUNT 295 10/3/uL (150-400)
[2016-09-16 12:22] LABS: CALCIUM, SERUM 8.9 MG/DL (8.5-10.4); CHLORIDE, SERUM 100 MMOL/L (96-112); CREATININE 8.33 MG/DL (0.70-1.30); GFR AFRICAN AMERICAN 8 ML/MIN (>=60); GFR NON AFRICAN AMERICAN 7 ML/MIN (>=60); GLUCOSE, SERUM 100 MG/DL (60-99); POTASSIUM, SERUM 4.7 MMOL/L (3.5-5.3); SODIUM, SERUM 138 MMOL/L (135-148)
[2016-09-16 12:25] LABS: BUN (BLOOD UREA NITROGEN) 40 MG/DL (6-23); CO2 (CARBON DIOXIDE) 30 MMOL/L (24-34)
[2016-09-16 13:29] LABS: HEMATOCRIT 23.4 % (40.0-51.0); HEMOGLOBIN 8.3 g/dL (13.6-17.8)
[2016-09-17 05:06] LABS: ALBUMIN 2.7 G/DL (3.5-5.0); BUN (BLOOD UREA NITROGEN) 28 MG/DL (6-23); CALCIUM, SERUM 8.5 MG/DL (8.5-10.4); CHLORIDE, SERUM 103 MMOL/L (96-112); CO2 (CARBON DIOXIDE) 27 MMOL/L (24-34); CREATININE 6.23 MG/DL (0.70-1.30); GFR AFRICAN AMERICAN 11 ML/MIN (>=60); GFR NON AFRICAN AMERICAN 10 ML/MIN (>=60); GLUCOSE, SERUM 224 MG/DL (60-99); PHOSPHORUS, SERUM 4.7 MG/DL (2.5-4.5); POTASSIUM, SERUM 4.2 MMOL/L (3.5-5.3); SODIUM, SERUM 139 MMOL/L (135-148)
[2016-09-17 05:35] LABS: BASOPHILS 0.9 %; BASOPHILS ABSOLUTE 0.09 10/3/uL (0.0-0.16); EOSINOPHILS 3.3 %; EOSINOPHILS ABSOLUTE 0.33 10/3/uL (0.0-0.53); HEMATOCRIT 23.9 % (40.0-51.0); HEMOGLOBIN 8.1 g/dL (13.6-17.8); IMMATURE GRANULOCYTES 0.7 %; IMMATURE GRANULOCYTES ABSOLUTE 0.07 10/3/uL (0.0-0.11); LYMPHOCYTES 11.6 %; LYMPHOCYTES ABSOLUTE 1.15 10/3/uL (0.67-4.30); MEAN CORPUS HGB CONC 33.9 g/dL (32.0-36.0); MEAN CORPUSCULAR HEMOGLOB 34.3 pg (26.0-34.0); MEAN PLATELET VOLUME 10.2 fL (9.2-13.0); MONOCYTES ABSOLUTE 0.89 10/3/uL (0.21-1.20); NEUTROPHILS 74.5 %; NEUTROPHILS ABSOLUTE 7.36 10/3/uL (2.02-8.40); PLATELET COUNT 281 10/3/uL (150-400); RBC DISTRIBUTION WIDTH 14.8 % (12.0-16.0); RED CELL COUNT 2.36 10/6/uL (4.7-6.1); WHITE BLOOD CELLS 9.9 10/3/uL (4.5-10.5)
[2016-09-17 05:36] LABS: MANUAL DIFF NO %; MEAN CORPUSCULAR VOLUME 101.3 fL (80-100)
[2016-09-17] MEDS ORDERED: GARACR15 TOP (10:30)
== END 2016-09-17 15:58 | disposition home or self-care (01) ==
LOC: ER 10:06 → 2SO 14:26
PROVIDERS: Internal Medicine Nephrology; Nurse Practitioner; Surgery
PROC: 0Y6Q0Z1 Detachment at Left 1st Toe, High, Open Approach (ICD-10-PCS; principal; 2016-09-16 18:15)
DX: S92.412B Displaced fracture of proximal phalanx of left great toe, initial encounter for open fracture (principal); I70.202 Unspecified atherosclerosis of native arteries of extremities, left leg; I12.0 Hypertensive chronic kidney disease with stage 5 chronic kidney disease or end stage renal disease; E11.22 Type 2 diabetes mellitus with diabetic chronic kidney disease; N18.6 End stage renal disease; G47.33 Obstructive sleep apnea (adult) (pediatric); E11.40 Type 2 diabetes mellitus with diabetic neuropathy, unspecified; J45.909 Unspecified asthma, uncomplicated; Z86.718 Personal history of other venous thrombosis and embolism; Z86.73 Personal history of transient ischemic attack (TIA), and cerebral infarction without residual deficits; Z99.81 Dependence on supplemental oxygen; Z99.2 Dependence on renal dialysis; Z88.1 Allergy status to other antibiotic agents; Z88.5 Allergy status to narcotic agent; Z88.8 Allergy status to other drugs, medicaments and biological substances; Z79.4 Long term (current) use of insulin
CPT/HCPCS: 73660-LT; 80048; 80069; 80202; 82962; 83735; 85014; 85018; 85025; 88302; 93288; 96372; 96374; 96375; 96376; 99284; A9270-GY; G0257; G0378; J0690; J1170; J2250; J2405; J3010; J3370